=== PATIENT | male | born 1950 | race Caucasian/White ===

== ENCOUNTER 2020-04-21 12:45 | Outpatient (CLI) | payer MEDICARE, OTHER, SELFPAY ==
--- NOTE | ~2020-04-21 | CT_ITS ---
EXAMINATION: CT abdomen pelvis wo con DATE: 04/21/2020 13:30 INDICATION: Suprapubic and generalized abdominal pain for 3 months TECHNIQUE: Computed tomography (CT) of the abdomen and pelvis was performed without intravenous contr ast. Automated exposure control and iterative reconstruction technique were employed. Exam dose: 712 .56 mGy-cm total exam DLP. COMPARISON: 01/10/2018 CT abdomen FINDINGS: The lung bases are clear of infiltrate or consolidation. Normal heart size. No pericardial or pleural effusion. Again noted are multiple cysts scattered throughout the left and right hepatic lobes, not significant ly changed since 01/10/2018. No interval suspicious space-occupying mass lesion of the liver. Normal s plenic size. The gallbladder is present. No gallbladder wall thickening or pericholecystic fluid or fat stranding. No bile duct or pancreatic duct dilatation. No pancreatic mass lesion or calcification is detected. Normal morphology of the adrenal glands. There is scarring and prominent cortical thinning in the upper pole left kidney posteriorly. Stable approximately 2.5 cm cyst of the right kidney. Stable very small exophytic cortical cyst of th e right kidney. No right renal or ureteral or urinary bladder calculus or hydroureteronephrosis. There is mild to mod erate prostate enlargement and calcification. There is atherosclerotic calcification of the abdominal aorta and at the origin of the superior mesen teric and the renal arteries. No abdominal aortic aneurysm. There is calcification of the iliac arter ies. No intraperitoneal or retroperitoneal or pelvic mass lesion or adenopathy or ascites is detected. Very small sliding hiatal hernia. Normal appendix. Diverticulosis of the left colon; no CT evidence of diverticulitis. No bowel obstruc tion, bowel wall thickening, pneumatosis or intraperitoneal free air is detected. Very small fat-containing umbilical hernia. Posterior T11-S1 spine fusion. Interbody spinal fusion at L5-S1 as well. No suspicious osteolytic or osteoblastic lesions are noted. IMPRESSION: Multiple stable hepatic cysts since 01/14/2018 Stable right renal cysts since 01/14/2018 Mild to moderate prostate enlargement and calcification Very small sliding hiatal hernia Diverticulosis of the left colon; no CT evidence of diverticulitis Posterior spinal fusion from T11-S1, interbody spinal fusion at L5-S1 Reviewed, dictated and finalized at [facility] Reviewed, dictated and finalized at [facility] ER
[2020-04-21 13:19] LABS: Estimated Glomerular Filt Rate 28
== END 2020-04-21 12:46 | disposition home or self-care (01) ==
PROVIDERS: PCP Family Medicine Adolescent Medicine; Visit Provider Internal Medicine Gastroenterology
DX: R10.30 Lower abdominal pain, unspecified (principal); K76.89 Other specified diseases of liver; N40.0 Benign prostatic hyperplasia without lower urinary tract symptoms; K44.9 Diaphragmatic hernia without obstruction or gangrene; K57.90 Diverticulosis of intestine, part unspecified, without perforation or abscess without bleeding; Z98.1 Arthrodesis status
CPT/HCPCS: 74176

== ENCOUNTER 2020-05-11 02:09 | Outpatient (CLI) | payer MEDICARE, OTHER, SELFPAY ==
[2020-05-11 18:38] LABS: SARS-CoV-2 RNA PCR Negative
== END 2020-05-11 02:10 | disposition home or self-care (01) ==
LOC: ANHCOVIDDT 02:09
PROVIDERS: PCP Family Medicine Adolescent Medicine; Visit Provider Internal Medicine Gastroenterology
DX: Z01.812 Encounter for preprocedural laboratory examination (principal); Z20.822 Contact with and (suspected) exposure to COVID-19
CPT/HCPCS: C9803; U0003; U0005

== ENCOUNTER 2020-05-14 02:24 | Day surgery (SDC) | payer MEDICARE, OTHER, SELFPAY ==
[2020-05-14 07:23] VITALS: BP 140/104; PULSE 69; RESP 20; TEMP 36.4; O2SAT 99; BMI 29.0
[2020-05-14] MEDS: LACTATED RINGERS 1,000 ML 150 ML IV CONT (07:39)
[2020-05-14 07:48] VITALS: BP 156/73
--- NOTE | 2020-05-14 08:30 | WPDANESEPPF ---
Anes - Initial Pre Proc Eval Procedure: Operation Date: 05/14/20 08:30 Proposed Procedures p Colonoscopy - Brant Camejo MD Date/Time: 05/14/20 08:30 Surgeon: Brant Camejo MD Pre Op Diagnosis: Abn. CT scan, Diverticulosis Patient Data Age: 70 Gender: M Height: 5 ft 7 in Weight: 84 kg Last Vital Signs Temp 97.5 F L 05/14/20 07:23 Pulse 69 05/14/20 07:23 Resp 20 05/14/20 07:23 BP 156/73 H 05/14/20 07:48 Pulse Ox 99 05/14/20 07:23 Allergies Allergy/AdvReac Type Severity Reaction Status Date / Time vancomycin AdvReac Redness of Verified 05/14/20 07:19 Skin Home Medications Medication Instructions Recorded Confirmed Type aspirin 81 mg PO DAILY 05/06/20 05/06/20 History cholecalciferol (vitamin D3) 125 mcg PO DAILY 05/06/20 05/06/20 History diclofenac sodium 75 mg PO BID 05/06/20 05/06/20 History docusate sodium 50 mg PO DAILY 05/06/20 05/06/20 History fenofibrate nanocrystallized 145 mg PO DAILY 05/06/20 05/06/20 History gabapentin 300 mg PO DAILY 05/06/20 05/06/20 History ipratropium bromide 1 spray INTRANASAL DAILY 05/06/20 05/06/20 History lisinopril-hydrochlorothiazide 1 tablet PO DAILY 05/06/20 05/06/20 History iuramvdajctd-ktlfftoo-hvdqzj 1 tablet PO DAILY 05/06/20 05/06/20 History [Multivitamin 50 Plus] dd-aq-pzeC-udqXv-Gzl-Sxl-hc124 1 tablet PO DAILY 05/06/20 05/06/20 History [Airborne (ascorbate sodium)] oxycodone 10 mg PO DAILY PRN 05/06/20 05/06/20 History pantoprazole 40 mg PO BID 05/06/20 05/06/20 History simvastatin 40 mg PO DAILY 05/06/20 05/06/20 History baclofen 10 mg DAILY PRN 05/14/20 05/14/20 History Patient hx anesthesia problems: none Family hx anesthesia problems: none PMFSH Past Medical History Medical History (Updated 01/22/21 @ 08:30 by Valdemar Hallman MD) GERD (gastroesophageal reflux disease) Hyperlipidemia Hypertension TIA (transient ischemic attack) Social History Social History Smoking packs per day: 2 Smoking cigarettes per day: 40.0 Years smoked: 20 Smoking pack-years: 40.00 Smoking status: Former smoker Tobacco type: cigarettes Alcohol intake: current Drinks per week: 7 Living arrangements: with family Gender identity (if verbalized by the patient): Male Spiritual care concerns: No Anes - Eval Final PreProcedure Day of Procedure 05/14/20 08:30 Patient weight: overweight Heart: regular rate and rhythm Lungs: clear to auscultation Airway: Mallampati scale class II Neurological: alert and oriented Last oral intake: >/= 8 hours ASA classification: III Emergent: no Anesthetic plan: proceed Anesthesia type and monitoring: general GIVS and standard monitoring Informed Consent: The patient's anesthetic plan and its attendant risks and benefits were discussed with the patient/family/POA. Questions were solicited and answers provided to the satisfaction of the patient/family/POA.
--- NOTE | 2020-05-14 08:37 | WPDGICN ---
Assessment and Plan Assessment and plan (1) Abdominal pain: Code(s): R10.9 - Unspecified abdominal pain Status: Acute Assessment and Plan: Patient has rather diffuse poorly localized abdominal pain. Etiology remains unclear. Diverticulosis evident on CT scan but no obvious diverticulitis. Plan is for colonoscopy to assess pain more thoroughly. High-fiber diet is advised. Because of prior history of GE reflux continuing pantoprazole peers prudent. Further recommendations will be given after endoscopy. (2) Diverticulosis: Code(s): K57.90 - Diverticulosis of intestine, part unspecified, without perforation or abscess without bleeding Status: Acute Assessment and Plan: Diverticular disease evident on CT scan. But no obvious explanation for pain. Five fiber diet advised at this time. Further recommendations may be given after endoscopy. GI Consult Note Consult date/time: 05/14/20 08:37 HPI: Valdemar Clark is a 70 year old male Seen in evaluation at the request of Dr. Stephenson. patient presents for evaluation of abdominal pain. Patient reports four-month history of rather diffuse abdominal discomfort. Perhaps a little bit more noticeable on the left abdomen compared to the right. No specific aggravating or alleviating factors. His bowel habits are normal. He may notice it somewhat more often after eating. States symptoms will occur intermittently perhaps every 3 days. When symptoms occur at last for approximately 1 1-1/2hours. Recent CT scan revealed diverticulosis. No evidence of inflammation where described. Patient has continued proton pump inhibitor such as pantoprazole with no change in symptoms. He has a prior history of acid reflux. Patient presents today for colonoscopy to evaluate more thoroughly. Family history is noncontributory. Review of Systems Review of Systems: All systems reviewed & are unremarkable except as noted in HPI and below PMFSH Past Medical History Medical History (Updated 05/14/20 @ 08:40 by Brant Camejo MD) GERD (gastroesophageal reflux disease) Hyperlipidemia Hypertension TIA (transient ischemic attack) Social History Social History Smoking packs per day: 2 Smoking cigarettes per day: 40.0 Years smoked: 20 Smoking pack-years: 40.00 Smoking status: Former smoker Tobacco type: cigarettes Alcohol intake: current Drinks per week: 7 Living arrangements: with family Gender identity (if verbalized by the patient): Male Spiritual care concerns: No Meds Home Medications and Allergies Home Medications Medication Instructions Recorded Confirmed Type aspirin 81 mg PO DAILY 05/06/20 05/06/20 History cholecalciferol (vitamin D3) 125 mcg PO DAILY 05/06/20 05/06/20 History diclofenac sodium 75 mg PO BID 05/06/20 05/06/20 History docusate sodium 50 mg PO DAILY 05/06/20 05/06/20 History fenofibrate nanocrystallized 145 mg PO DAILY 05/06/20 05/06/20 History gabapentin 300 mg PO DAILY 05/06/20 05/06/20 History ipratropium bromide 1 spray INTRANASAL DAILY 05/06/20 05/06/20 History lisinopril-hydrochlorothiazide 1 tablet PO DAILY 05/06/20 05/06/20 History slitxpcrqcbk-inrojcri-svaiqh 1 tablet PO DAILY 05/06/20 05/06/20 History [Multivitamin 50 Plus] ms-pj-pmgK-nukMa-Wdj-Zkj-hc124 1 tablet PO DAILY 05/06/20 05/06/20 History [Airborne (ascorbate sodium)] oxycodone 10 mg PO DAILY PRN 05/06/20 05/06/20 History pantoprazole 40 mg PO BID 05/06/20 05/06/20 History simvastatin 40 mg PO DAILY 05/06/20 05/06/20 History baclofen 10 mg DAILY PRN 05/14/20 05/14/20 History Allergies Allergy/AdvReac Type Severity Reaction Status Date / Time vancomycin AdvReac Redness of Verified 05/14/20 07:19 Skin Vital Signs Vital Signs - 24 hr 05/14/20 07:23 05/14/20 07:48 Temperature 97.5 F L Pulse Rate 69 Respiratory Rate 20 Blood Pressure 140/104 H 156/73 H Pulse Oximetry 99 Exam Narrative: Exam Narrative:
[2020-05-14 08:58] VITALS: BP 103/71; PULSE 75; RESP 20; O2SAT 98
[2020-05-14 09:08] VITALS: BP 108/70; PULSE 67; RESP 20; O2SAT 99
[2020-05-14 09:18] VITALS: BP 117/78; PULSE 61; RESP 20; O2SAT 99
== END 2020-05-14 09:31 | disposition home or self-care (01) ==
PROVIDERS: PCP Family Medicine Adolescent Medicine; Visit Provider Internal Medicine Gastroenterology
PROC: 0DJD8ZZ Inspection of Lower Intestinal Tract, Via Natural or Artificial Opening Endoscopic (ICD-10-PCS; CPT 45378; principal; 2020-05-14 08:30)
DX: Z12.11 Encounter for screening for malignant neoplasm of colon (principal); R10.84 Generalized abdominal pain; K64.8 Other hemorrhoids; K57.30 Diverticulosis of large intestine without perforation or abscess without bleeding; K21.9 Gastro-esophageal reflux disease without esophagitis; I10 Essential (primary) hypertension; E78.5 Hyperlipidemia, unspecified; Z86.73 Personal history of transient ischemic attack (TIA), and cerebral infarction without residual deficits; Z87.891 Personal history of nicotine dependence; Z79.82 Long term (current) use of aspirin
CPT/HCPCS: G0121; J2704; J7120

== ENCOUNTER 2020-05-25 00:07 | Outpatient (CLI) | payer MEDICARE, OTHER, SELFPAY ==
[2020-05-25 19:18] LABS: SARS-CoV-2 RNA PCR Negative
== END 2020-05-25 00:08 | disposition home or self-care (01) ==
LOC: ANHCOVIDDT 00:21
PROVIDERS: PCP Family Medicine Adolescent Medicine; Visit Provider Internal Medicine Gastroenterology
DX: Z01.812 Encounter for preprocedural laboratory examination (principal); Z20.822 Contact with and (suspected) exposure to COVID-19
CPT/HCPCS: C9803; U0003; U0005

== ENCOUNTER 2020-05-28 01:31 | Day surgery (SDC) | payer MEDICARE, OTHER, SELFPAY ==
[2020-05-18 14:12] VITALS: BMI 30.8
[2020-05-28] MEDS: LACTATED RINGERS 1,000 ML 150 ML IV CONT (08:57)
[2020-05-28 08:59] VITALS: BP 162/84; PULSE 78; RESP 18; TEMP 36.2; O2SAT 100; BMI 33.0
--- NOTE | 2020-05-28 09:07 | WPDGICN ---
Assessment and Plan Assessment and plan (1) Abdominal pain: Code(s): R10.9 - Unspecified abdominal pain Status: Acute Assessment and Plan: Patient is abdominal pain currently appears to be more in the left upper quadrant. Typically after eating and improved somewhat with Tums. Plan is for EGD to assess more thoroughly today. If this fails to identify source of discomfort small-bowel follow-through may be of additional in for importance. Further recommendations will be given after endoscopy. (2) Diverticulosis: Code(s): K57.90 - Diverticulosis of intestine, part unspecified, without perforation or abscess without bleeding Status: Acute Assessment and Plan: Diverticular disease appears to be asymptomatic. High-fiber diet advised. GI Consult Note Consult date/time: 05/28/20 09:07 HPI: Valdemar Clark is a 70 year old male Seen in evaluation at the request of Dr. Landa. Patient recently underwent unremarkable colonoscopy. Patient continues to complain of pain. He typically will have left upper quadrant abdominal pain after eating. He describes becoming bloated. There is no specific dietary intake that triggers this pain. When pain comes on it will last for about 1hour. He states this occurs more typically after the evening meal. States his symptoms improve on taking Tums. Patient does describe his abdomen becoming tense and tight during this interval. As stated recent colonoscopy was unremarkable aside from diverticular disease. Family history is noncontributory. Patient denies any weight loss or bleeding. In addition to Tums he is on pantoprazole 40 mg p.o. b.i.d.. Patient presents today for EGD evaluation. Review of Systems Review of Systems: All systems reviewed & are unremarkable except as noted in HPI and below [facility] Past Medical History Medical History (Updated 05/14/20 @ 08:40 by Brant Camejo MD) GERD (gastroesophageal reflux disease) Hyperlipidemia Hypertension TIA (transient ischemic attack) Social History Social History Smoking packs per day: 2 Smoking cigarettes per day: 40.0 Years smoked: 20 Smoking pack-years: 40.00 Smoking status: Former smoker Tobacco type: cigarettes Alcohol intake: current Drinks per week: 7 Substance use: former Substance use type: does not use Living arrangements: with family Gender identity (if verbalized by the patient): Male Spiritual care concerns: No Meds Home Medications and Allergies Home Medications Medication Instructions Recorded Confirmed Type aspirin 81 mg PO DAILY 05/06/20 05/18/20 History cholecalciferol (vitamin D3) 125 mcg PO DAILY 05/06/20 05/18/20 History diclofenac sodium 75 mg PO BID 05/06/20 05/18/20 History docusate sodium 50 mg PO DAILY 05/06/20 05/18/20 History fenofibrate nanocrystallized 145 mg PO DAILY 05/06/20 05/18/20 History gabapentin 300 mg PO DAILY 05/06/20 05/18/20 History ipratropium bromide 1 spray INTRANASAL DAILY 05/06/20 05/18/20 History lisinopril-hydrochlorothiazide 1 tablet PO DAILY 05/06/20 05/18/20 History foecpqbkhdrg-getzmpws-zmilvk 1 tablet PO DAILY 05/06/20 05/18/20 History [Multivitamin 50 Plus] al-ld-cipU-befIg-Ven-Suh-hc124 1 tablet PO DAILY 05/06/20 05/18/20 History [Airborne (ascorbate sodium)] pantoprazole 40 mg PO BID 05/06/20 05/18/20 History simvastatin 40 mg PO DAILY 05/06/20 05/18/20 History baclofen 10 mg DAILY PRN 05/14/20 05/18/20 History Allergies Allergy/AdvReac Type Severity Reaction Status Date / Time vancomycin AdvReac Redness of Verified 05/18/20 14:10 Skin Vital Signs Vital Signs - 24 hr 05/28/20 08:59 Temperature 97.1 F L Pulse Rate 78 Respiratory Rate 18 Blood Pressure 162/84 H Pulse Oximetry 100 Exam Narrative: Exam Narrative: Physical exam reveals patient to be alert. Vital signs stable. HEENT exam is unremarkable. Lungs are clear to auscultation and percussion. Heart is with
--- NOTE | 2020-05-28 09:25 | WPDANESEPPF ---
Anes - Initial Pre Proc Eval Procedure: Operation Date: 05/28/20 10:00 Proposed Procedures p Esophagogastroduodenoscopy - Brant Camejo MD Date/Time: 05/28/20 09:25 Surgeon: Brant Camejo MD Pre Op Diagnosis: Right Upper Quadrant Pain Patient Data Age: 70 Gender: M Height: 5 ft 5 in Weight: 90.1 kg Last Vital Signs Temp 97.1 F L 05/28/20 08:59 Pulse 78 05/28/20 08:59 Resp 18 05/28/20 08:59 BP 162/84 H 05/28/20 08:59 Pulse Ox 100 05/28/20 08:59 Allergies Allergy/AdvReac Type Severity Reaction Status Date / Time vancomycin AdvReac Redness of Verified 05/18/20 14:10 Skin Home Medications Medication Instructions Recorded Confirmed Type aspirin 81 mg PO DAILY 05/06/20 05/18/20 History cholecalciferol (vitamin D3) 125 mcg PO DAILY 05/06/20 05/18/20 History diclofenac sodium 75 mg PO BID 05/06/20 05/18/20 History docusate sodium 50 mg PO DAILY 05/06/20 05/18/20 History fenofibrate nanocrystallized 145 mg PO DAILY 05/06/20 05/18/20 History gabapentin 300 mg PO DAILY 05/06/20 05/18/20 History ipratropium bromide 1 spray INTRANASAL DAILY 05/06/20 05/18/20 History lisinopril-hydrochlorothiazide 1 tablet PO DAILY 05/06/20 05/18/20 History hswqdsosdsqu-bmfrdvum-oxutkg 1 tablet PO DAILY 05/06/20 05/18/20 History [Multivitamin 50 Plus] ym-fe-tolY-mrkUq-Dgq-Tby-hc124 1 tablet PO DAILY 05/06/20 05/18/20 History [Airborne (ascorbate sodium)] pantoprazole 40 mg PO BID 05/06/20 05/18/20 History simvastatin 40 mg PO DAILY 05/06/20 05/18/20 History baclofen 10 mg DAILY PRN 05/14/20 05/18/20 History Patient hx anesthesia problems: none Family hx anesthesia problems: none PMFSH Past Medical History Medical History (Updated 05/14/20 @ 08:40 by Brant Camejo MD) GERD (gastroesophageal reflux disease) Hyperlipidemia Hypertension TIA (transient ischemic attack) Social History Social History Smoking packs per day: 2 Smoking cigarettes per day: 40.0 Years smoked: 20 Smoking pack-years: 40.00 Smoking status: Former smoker Tobacco type: cigarettes Alcohol intake: current Drinks per week: 7 Substance use: former Substance use type: does not use Living arrangements: with family Gender identity (if verbalized by the patient): Male Spiritual care concerns: No Anes - Eval Final PreProcedure Day of Procedure 05/28/20 09:25 Patient weight: overweight Heart: regular rate and rhythm Lungs: clear to auscultation Airway: Mallampati scale class II Neurological: alert and oriented Last oral intake: >/= 8 hours ASA classification: III Emergent: no Anesthetic plan: proceed Anesthesia type and monitoring: general GIVS and standard monitoring Informed Consent: The patient's anesthetic plan and its attendant risks and benefits were discussed with the patient/family/POA. Questions were solicited and answers provided to the satisfaction of the patient/family/POA.
[2020-05-28] MEDS: SIMETHICONE ORAL SUSPENSION 20 MG/0.3 ML 30 ML BOTTLE 0.6 ML IRRIGATION (09:39)
[2020-05-28 09:50] VITALS: BP 110/67; PULSE 65; RESP 18; O2SAT 98
[2020-05-28 10:00] VITALS: BP 117/79; PULSE 64; RESP 20; O2SAT 100
[2020-05-28 10:10] VITALS: BP 118/69; PULSE 61; RESP 21; O2SAT 100
== END 2020-05-28 10:33 | disposition home or self-care (01) ==
PROVIDERS: PCP Family Medicine Adolescent Medicine; Visit Provider Internal Medicine Gastroenterology
PROC: 0DJ08ZZ Inspection of Upper Intestinal Tract, Via Natural or Artificial Opening Endoscopic (ICD-10-PCS; CPT 43235; principal; 2020-05-28 10:00)
DX: C7A.010 Malignant carcinoid tumor of the duodenum (principal); D13.2 Benign neoplasm of duodenum; K31.7 Polyp of stomach and duodenum; K29.50 Unspecified chronic gastritis without bleeding; K25.3 Acute gastric ulcer without hemorrhage or perforation; R10.12 Left upper quadrant pain; K21.9 Gastro-esophageal reflux disease without esophagitis; E78.5 Hyperlipidemia, unspecified; I10 Essential (primary) hypertension; Z86.73 Personal history of transient ischemic attack (TIA), and cerebral infarction without residual deficits; Z87.891 Personal history of nicotine dependence; Z79.82 Long term (current) use of aspirin
CPT/HCPCS: 43239; 43251; 88305; 88342; J2704; J7120

== ENCOUNTER → 2020-08-07 02:58 | Outpatient (CLI) | payer MEDICARE, OTHER, SELFPAY ==
[2020-08-07 19:43] LABS: SARS-CoV-2 RNA PCR Negative
== END ==
PROVIDERS: Visit Provider Internal Medicine Gastroenterology
DX: Z01.812 Encounter for preprocedural laboratory examination (principal); Z20.822 Contact with and (suspected) exposure to COVID-19
CPT/HCPCS: C9803; U0003; U0005

== ENCOUNTER 2020-08-10 00:57 | Day surgery (SDC) | payer MEDICARE, OTHER, SELFPAY ==
[2020-07-29 14:33] VITALS: BMI 30.4
[2020-08-10 08:19] VITALS: BP 125/72; PULSE 79; RESP 20; TEMP 36.2; O2SAT 99
[2020-08-10] MEDS: LACTATED RINGERS 1,000 ML 150 ML IV CONT (08:33)
--- NOTE | 2020-08-10 08:49 | WPDANESEPPF ---
Anes - Initial Pre Proc Eval Procedure: Operation Date: 08/10/20 10:00 Proposed Procedures p Esophagogastroduodenoscopy - Aniceto Arndt MD Date/Time: 08/10/20 08:49 Surgeon: Aniceto Arndt MD Pre Op Diagnosis: Gastric Ulcer Patient Data Age: 70 Gender: M Height: 5 ft 7 in Weight: 88.9 kg Last Vital Signs Temp 97.2 F L 08/10/20 08:19 Pulse 79 08/10/20 08:19 Resp 20 08/10/20 08:19 BP 125/72 08/10/20 08:19 Pulse Ox 99 08/10/20 08:19 Allergies Allergy/AdvReac Type Severity Reaction Status Date / Time alprazolam [From Xanax] Allergy Loss of Verified 08/10/20 08:18 Consciousness vancomycin AdvReac Redness of Verified 08/10/20 08:18 Skin Home Medications Medication Instructions Recorded Confirmed Type cholecalciferol (vitamin D3) 125 mcg PO DAILY 05/06/20 08/10/20 History docusate sodium 50 mg PO DAILY 05/06/20 08/10/20 History fenofibrate nanocrystallized 145 mg PO DAILY 05/06/20 08/10/20 History gabapentin 300 mg PO QID 05/06/20 08/10/20 History ipratropium bromide 1 spray INTRANASAL DAILY 05/06/20 08/10/20 History lisinopril-hydrochlorothiazide 1 tablet PO DAILY 05/06/20 08/10/20 History bxvfrckdilcd-cwnyfkyh-rlcqfq 1 tablet PO DAILY 05/06/20 08/10/20 History [Multivitamin 50 Plus] bg-pn-mzmO-kimYj-Uyq-Gui-hc124 1 tablet PO DAILY 05/06/20 08/10/20 History [Airborne (ascorbate sodium)] pantoprazole 40 mg PO BID 05/06/20 08/10/20 History simvastatin 40 mg PO DAILY 05/06/20 08/10/20 History baclofen 10 mg PO DAILY PRN 05/14/20 08/10/20 History amoxicillin 500 mg PO Q12H 08/10/20 08/10/20 History Patient hx anesthesia problems: none Family hx anesthesia problems: none PMFSH Past Medical History Medical History GERD (gastroesophageal reflux disease) Hyperlipidemia Hypertension TIA (transient ischemic attack) Social History Social History (System 06/04/20 @ 11:58 by Giselle Torre) Smoking packs per day: 2 Smoking cigarettes per day: 40.0 Years smoked: 20 Smoking pack-years: 40.00 Smoking status: Former smoker Tobacco type: cigarettes Alcohol intake: current Drinks per week: 3 Alcohol use details: WHISKJANET Substance use: never Substance use type: does not use Living arrangements: with family Gender identity (if verbalized by the patient): Male Spiritual care concerns: No Anes - Eval Final PreProcedure Day of Procedure 08/10/20 08:49 Patient weight: overweight Heart: regular rate and rhythm Lungs: clear to auscultation Airway: Mallampati scale class II Neurological: alert and oriented Last oral intake: >/= 8 hours ASA classification: III Emergent: no Anesthetic plan: proceed Anesthesia type and monitoring: general GIVS and standard monitoring Informed Consent: The patient's anesthetic plan and its attendant risks and benefits were discussed with the patient/family/POA. Questions were solicited and answers provided to the satisfaction of the patient/family/POA.
--- NOTE | 2020-08-10 09:41 | PM.HPGS ---
History of Present Illness History of Present Illness Consent: Risks, benefits, and alternatives have been discussed and questions answered. Patient agrees to proceed with procedure. Chief complaint: Gastric Ulcer Narrative: Valdemar Clark is a 70 year old male 2 months ago had gastric ulcer, he discontinued meloxicam and now using ppi Review of Systems Constitutional: Constitutional: Denies headache(s) and Denies weakness Eyes: Eyes: Denies blurry vision ENT: Reports Normal hearing present, Denies headache(s) and Denies neck pain Cardiovascular: Cardiovascular: Denies chest pain and Denies dyspnea Respiratory: Respiratory: Denies dyspnea Gastrointestinal: Gastrointestinal: Reports no additional gastrointestinal complaints Genitourinary: Genitourinary: Denies dysuria Musculoskeletal: Musculoskeletal: Denies neck pain Integumentary/Breasts: Skin/Breast: Denies dry skin Neurologic: Reports Normal hearing present, Denies headache(s) and Denies weakness Psychiatric: Psychiatric: Denies anxiety Endocrine: Endocrine: Denies change in body appearance Hematologic/Lymphatic: Hematologic/Lymphatic: Denies easy bleeding Allergic/Immunologic: Allergic/Immunologic: Denies urticaria PMFSH Past Medical History Medical History GERD (gastroesophageal reflux disease) Hyperlipidemia Hypertension TIA (transient ischemic attack) Social History Social History (System 06/04/20 @ 11:58 by Giselle Torre) Smoking packs per day: 2 Smoking cigarettes per day: 40.0 Years smoked: 20 Smoking pack-years: 40.00 Smoking status: Former smoker Tobacco type: cigarettes Alcohol intake: current Drinks per week: 3 Alcohol use details: RAHATEY Substance use: never Substance use type: does not use Living arrangements: with family Gender identity (if verbalized by the patient): Male Spiritual care concerns: No Meds Home Medications and Allergies Home Medications Medication Instructions Recorded Confirmed Type cholecalciferol (vitamin D3) 125 mcg PO DAILY 05/06/20 08/10/20 History docusate sodium 50 mg PO DAILY 05/06/20 08/10/20 History fenofibrate nanocrystallized 145 mg PO DAILY 05/06/20 08/10/20 History gabapentin 300 mg PO QID 05/06/20 08/10/20 History ipratropium bromide 1 spray INTRANASAL DAILY 05/06/20 08/10/20 History lisinopril-hydrochlorothiazide 1 tablet PO DAILY 05/06/20 08/10/20 History hwcwcqaseujy-ilmynuiw-haxjzz 1 tablet PO DAILY 05/06/20 08/10/20 History [Multivitamin 50 Plus] el-fv-hkaV-dxkQy-Ycg-Yzp-hc124 1 tablet PO DAILY 05/06/20 08/10/20 History [Airborne (ascorbate sodium)] pantoprazole 40 mg PO BID 05/06/20 08/10/20 History simvastatin 40 mg PO DAILY 05/06/20 08/10/20 History baclofen 10 mg PO DAILY PRN 05/14/20 08/10/20 History amoxicillin 500 mg PO Q12H 08/10/20 08/10/20 History Allergies Allergy/AdvReac Type Severity Reaction Status Date / Time alprazolam [From Xanax] Allergy Loss of Verified 08/10/20 08:18 Consciousness vancomycin AdvReac Redness of Verified 08/10/20 08:18 Skin Vital Signs Vital Signs - 24 hr 08/10/20 08:19 Temperature 97.2 F L Pulse Rate 79 Respiratory Rate 20 Blood Pressure 125/72 Pulse Oximetry 99 Exam Const: General: comfortable and no acute distress HENMT: General nose exam: Normal nares present Eyes: General: appearance normal, both eyes and all related structures Neck: Neck: no JVD Resp: Auscultation: clear to auscultation bilaterally Cardio: Rate: regular rate Rhythm: regular rhythm GI: Inspection: non-distended GI Palp: Yes Soft to palpation Skin: General skin exam: normal color Neuro: General: gait normal Speech: normal speech Extrem: General: normal to inspection Psych: Mental Status: mental status grossly normal Assessment and Plan Assessment and plan (1) Gastric ulcer: Code(s): K25.9 - Gastric ulcer, unspec
[2020-08-10 09:52] VITALS: BP 102/64; PULSE 63; RESP 19; O2SAT 97
[2020-08-10 10:02] VITALS: BP 99/58; PULSE 61; RESP 18; O2SAT 98
[2020-08-10 10:12] VITALS: BP 112/73; PULSE 56; RESP 18; O2SAT 98
== END 2020-08-10 10:40 | disposition home or self-care (01) ==
PROVIDERS: PCP Family Medicine Adolescent Medicine; Visit Provider Internal Medicine Gastroenterology
PROC: 0DJ08ZZ Inspection of Upper Intestinal Tract, Via Natural or Artificial Opening Endoscopic (ICD-10-PCS; CPT 43235; principal; 2020-08-10 10:00)
DX: K25.9 Gastric ulcer, unspecified as acute or chronic, without hemorrhage or perforation (principal); K31.7 Polyp of stomach and duodenum; K29.50 Unspecified chronic gastritis without bleeding; K21.9 Gastro-esophageal reflux disease without esophagitis; I10 Essential (primary) hypertension; E87.5 Hyperkalemia; E78.5 Hyperlipidemia, unspecified; Z86.73 Personal history of transient ischemic attack (TIA), and cerebral infarction without residual deficits; Z87.891 Personal history of nicotine dependence
CPT/HCPCS: 43239; 88305; J2704; J7120

== ENCOUNTER 2022-01-11 10:28 | Outpatient (CLI) | payer MEDICARE, OTHER, SELFPAY ==
[2022-01-11 10:53] LABS: Basophils Percent Auto 0.8 % (0.2-1.2); Eosinophils Absolute Auto 0.2 K/mm3 (0-0.3); Hematocrit 53.5 % (42.0-52.0); Hemoglobin 16.7 g/dL (14.0-18.0); Immature Granulocyte Absolute 0.01 K/mm3 (0.00-0.031); Immature Granulocyte Percent A 0.3 % (0-0.5); Lymphocytes Absolute Auto 0.58 K/mm3 (0.9-3.2); Lymphocytes Percent Auto 14.5 % (18.3-44.2); Mean Corpuscular HGB Conc 31.2 g/dl (32-36); Mean Corpuscular Hemoglobin 25.9 pg (26-34); Mean Corpuscular Volume 83.1 fl (80-100); Mean Platelet Volume 9.6 fl (7.4-10.4); Monocytes Absolute Auto 0.3 K/mm3 (0.1-0.6); Monocytes Percent Auto 7.3 % (2.6-8.5); Neutrophils Absolute Auto 2.9 K/mm3 (1.3-6.7); Neutrophils Percent Auto 72.1 % (45.5-73.1); Platelet Count Result 169 k/mm3 (150-375); Red Blood Count 6.44 M/mm3 (4.6-6.20); Red Cell Distribution Width 21.3 % (11.5-14.5)
[2022-01-11 11:53] LABS: Iron 30 ug/dL (49-181)
[2022-01-11 12:03] LABS: Percent Iron Saturation 8 % (20-50)
[2022-01-11 12:09] LABS: Alanine Aminotransferase 37 U/L (6-50); Albumin Level 4.7 g/dL (3.5-5.1); Alkaline Phosphatase 74 U/L (38-126); Anion Gap 10 mmol/L (8-16); Aspartate Amino Transferase 36 U/L (17-59); Bilirubin,Total 0.4 mg/dL (0.2-1.3); Blood Urea Nitrogen 21 mg/dL (9-20); Calcium 11.5 mg/dL (8.4-10.2); Carbon Dioxide 24 mmol/L (22-30); Chloride 109 mmol/L (98-107); Estimated Glomerular Filt Rate > 60; Glucose 136 mg/dL (65-110); Potassium 3.7 mmol/L (3.4-5.0); Sodium 143 mmol/L (137-145)
[2022-01-11 12:31] LABS: Thyroid Stimulating Hormone 0.845 uIU/mL (0.465-4.680)
[2022-01-11 13:06] LABS: Folic Acid 11.2 ng/mL (2.76->20)
[2022-01-11 13:10] LABS: Vitamin D 25 Hydroxy 72.3 ng/mL
[2022-01-11 14:06] LABS: Parathyroid Intact 210.1 pg/mL (7.5-53.5)
== END 2022-01-11 10:29 | disposition home or self-care (01) ==
LOC: ANHLAB 10:30
PROVIDERS: PCP Family Medicine Adolescent Medicine; Visit Provider Internal Medicine Hematology & Oncology
DX: D50.9 Iron deficiency anemia, unspecified (principal); E55.9 Vitamin D deficiency, unspecified; I10 Essential (primary) hypertension
CPT/HCPCS: 36415; 80053; 82306; 82607; 82728; 82746; 83540; 83550; 83970; 84443; 85025

== ENCOUNTER → 2022-02-22 10:33 | Outpatient (CLI) | payer MEDICARE, OTHER, SELFPAY ==
--- NOTE | ~2022-02-22 | US_ITS ---
EXAMINATION: US thyroid DATE: 02/22/2022 11:02 INDICATION: Abnormal thyroid hormone levels TECHNIQUE: Multiple ultrasound images of the thyroid were obtained. COMPARISON: Postcontrast cervical spine CT dated 12/23/2015 FINDINGS: The right thyroid lobe measures 5.5 x 2.2 x 2.2 cm. The left thyroid lobe measures 5.7 x 2.0 x 1.6 c m. 3 mm hypoechoic nodule in the mid right thyroid, too small to determine whether solid or cystic. No other thyroid nodules identified. There is normal echotexture, echogenicity and vascular flow thro ughout the thyroid gland. IMPRESSION: 1. Single 3 mm nodule in the right lobe of the otherwise normal thyroid which is too small to further characterize, but which regardless of imaging features remains below size threshold for recommendati on of either follow-up or biopsy. Reviewed, dictated and finalized at location B. IMPRESSION: 1. Single 3 mm nodule in the right lobe of the otherwise normal thyroid which i s too small to further characterize, but which regardless of imaging features r emains below size threshold for recommendation of either follow-up or biopsy.
== END ==
PROVIDERS: PCP Family Medicine Adolescent Medicine; Visit Provider Internal Medicine Endocrinology, Diabetes & Metabolism
DX: E04.9 Nontoxic goiter, unspecified (principal)
CPT/HCPCS: 76536

== ENCOUNTER 2022-02-24 09:56 | Outpatient (CLI) | payer MEDICARE, OTHER, SELFPAY | END 2022-02-24 09:57 | disposition home or self-care (01) | LOC: ANHAUDASC 09:59 | PROVIDERS: PCP Family Medicine Adolescent Medicine; Visit Provider Family Medicine Adolescent Medicine | DX: H90.3 Sensorineural hearing loss, bilateral (principal) | CPT/HCPCS: 92557; 92567 ==

== ENCOUNTER → 2022-03-01 09:05 | Outpatient (CLI) | payer MEDICARE, OTHER, SELFPAY ==
--- NOTE | ~2022-03-01 | DEXA_ITS ---
Bone Density Report Name: YASMIN MALIN Age: 71 Sex: Male Ethnicity: White Date of : 1950 Indication: hyperparathyroidism; Referring Provider: Salo, Brittney Patterson Study: Bone densitometry was performed. Exam Date: March 01, 2022 Accession number: [id number] Bone Density: Region BMD T-score Z-score Classification Total Forearm (Left) 0.654 -0.5 0.7 1/3 Forearm (Left) 0.792 -0.6 0.7 UD Forearm (Left) 0.489 -0.4 0.7 World Health Organization criteria for BMD impression classify patients as: Normal (T-score at or above -1.0), Osteopenia (T-score between -1.0 and -2.5), or Osteoporosis (T-score at or below -2.5). Clinical Information Provided by Patient: Smokes Has used the following medications: Vitamin D, MTV Has the following medical conditions: Hyperparathyroidism, 1 fractured Lumbar vert during hardware replacement Patient maximum height was 68 No regular weight bearing exercise Does not regularly consume dairy products Drinks caffeinated beverages Impression: The patient has normal bone mass. The patient has risk factors, including: smoking. Discussion: BONE DENSITY IS ABOVE THE MINIMUM DESIRABLE LEVEL AT ALL SKELETAL SITES TESTED. This patient?s bone mineral density is above the minimum desirable level (T-score -1.0 or better) at all sites measured. The patient should follow a healthful lifestyle (good nutrition with adequate calcium and vitamin D, and appropriate weight-bearing exercise). Follow-Up: Consider repeating this study in 5 years or sooner if there is some new clinical indication. Reported by: JANEE on 03/01/2022 10:38:00 AM. Reviewed, dictated and finalized at location AWilliam [facility]
== END ==
PROVIDERS: PCP Family Medicine Adolescent Medicine; Visit Provider Internal Medicine Endocrinology, Diabetes & Metabolism
DX: E21.3 Hyperparathyroidism, unspecified (principal); M81.0 Age-related osteoporosis without current pathological fracture
CPT/HCPCS: 77081

== ENCOUNTER → 2022-03-07 14:56 | Outpatient (CLI) | payer MEDICARE, OTHER, SELFPAY ==
--- NOTE | ~2022-03-07 | DEXA_ITS ---
Bone Density Report Name: YASMIN MALIN Age: 71 Sex: Male Ethnicity: White Date of : 1950 Indication: hyperparathyroidism; Referring Provider: Salo, Brittney Patterson Study: Bone densitometry was performed. Exam Date: March 07, 2022 Accession number: [id number] Bone Density: Region BMD T-score Z-score Classification Femoral Neck (Left) 0.751 -1.3 -0.1 Osteopenia Total Hip (Left) 1.042 0.1 0.7 Normal Femoral Neck (Right) 0.818 -0.8 0.4 Normal Total Hip (Right) 1.127 0.6 1.3 Normal Total Hip Mean 1.085 0.4 1.0 Normal World Health Organization criteria for BMD impression classify patients as: Normal (T-score at or above -1.0), Osteopenia (T-score between -1.0 and -2.5), or Osteoporosis (T-score at or below -2.5). 10-year Fracture Risk(1): Major Osteoporotic Fracture 5.8% Hip Fracture 1.7% Reported Risk Factors: [place] (), Neck BMD=0.751, BMI=29.6, smoking (1) FRAX(R) Version 3.08. Fracture probability calculated for an untreated patient. Fracture probability may be lower if the patient has received treatment. Clinical Information Provided by Patient: Smokes Has used the following medications: Vitamin D, MTV Has the following medical conditions: Hyperparathyroidism, 1 fractured Lumbar vert during hardware replacement Patient maximum height was 68.0 No regular weight bearing exercise Does not regularly consume dairy products Drinks caffeinated beverages Impression: The patient has low bone mass, based on the Left Femoral Neck T-score. The patient has an estimated ten-year risk of hip fracture of 1.7% and an estimated ten-year risk of major fracture of 5.8%, based on the WHO FRAX algorithm. The patient has risk factors, including: smoking. Discussion: BONE DENSITY IS LOW AT ONE OR MORE SKELETAL SITES. This patient's lowest T-score is low at one or more skeletal sites. It meets the World Health Organization's (WHO) criteria for ?low bone mass? (T-score between -1.0 and -2.5). The patient's 10-year risk of fracture as calculated by FRAX is less than the threshold where pharmacological therapy is recommended by the National Osteoporosis Foundation (NOF). However, all treatment decisions require clinical judgment and consideration of individual patient factors, including patient preferences, comorbidities, previous drug use, risk factors not captured in the FRAX model (e.g., frailty, falls, vitamin D deficiency, increased bone turnover, interval significant decline in bone density) and possible under or overestimation of fracture risk by FRAX. The patient should follow a healthful lifestyle (good nutrition with adequate calcium and vitamin D, and appropriate weight-bearing exercise). Follow-Up: Consider repeating this study in 2 to 3 years to reassess this patient's status, or sooner if there is some new
== END ==
PROVIDERS: PCP Family Medicine Adolescent Medicine; Visit Provider Internal Medicine Endocrinology, Diabetes & Metabolism
DX: M81.0 Age-related osteoporosis without current pathological fracture (principal); E21.3 Hyperparathyroidism, unspecified; M85.852 Other specified disorders of bone density and structure, left thigh
CPT/HCPCS: 77080

== ENCOUNTER → 2022-09-12 08:41 | Outpatient (CLI) | payer MEDICARE, OTHER, SELFPAY ==
--- NOTE | ~2022-09-12 | MR_ITS ---
EXAMINATION: MR knee RT wo con DATE: 09/12/2022 09:24 INDICATION: Right knee pain TECHNIQUE: Magnetic resonance imaging (MRI) of the right knee was performed without intravenous contr ast. Sequences included coronal PD-weighted FSE, coronal PD-weighted FS FSE, sagittal T2-weighted FS E, sagittal PD-weighted FS FSE and axial PD weighted fat saturated FSE. COMPARISON: None. FINDINGS: Medial compartment: Complex tear of the posterior body and posterior horn of the medial meniscus which extends longitudin ally to the inferior articular surface at the posterior body and medial side of the posterior horn cr ossing the free edge and cutting the cephalad surface in the more lateral posterior horn. There is ch ondral surface regularity at the central aspect of the medial tibial plateau and along the anterior t o central weightbearing medial femoral condyle. Lateral compartment: Incomplete discoid lateral meniscus which measures 16.5 cm in width of the meniscal body which progre ssed slightly greater than 20% of the medial collateral diameter of the tibia. No meniscal tear. Rubia cular cartilage is normal. Patellofemoral compartment: There is deep chondral ulceration and fissuring with underlying cortical irregularity and subarticula r edema-like signal change at the caudal aspect of the trochlear groove and medial trochlea as well a s at the cephalad aspect of the lateral patellar facet and apical ridge and more extensively cranioca udally at the medial facet. There is a partial-thickness chondral flap tear extending caudally from t he margin of the region of patellar chondral ulceration. Ligaments and tendons: Anterior and posterior cruciate ligaments are normal. Mild thickening and increased signal on the ant erior margin of the proximal medial collateral ligament without surrounding edema consistent with mil d scarring related to chronic sprain. The fibular collateral ligament complex is normal. Mild distal quadriceps tendinopathy and mild proximal patellar tendinopathy, both without discrete tears. The vis ualized medial and lateral hamstring tendons as well as the iliotibial band are normal. Fluid: Physiologic amount of fluid in the joint space. No loose osteochondral bodies identified. Multilobula fely ganglion cyst at the popliteal recess extending 6.3 cm craniocaudally to the posterior inferior m argin of the occiput tibiofibular joint and measuring up to 1 cm in maximal orthogonal dimensions. Osseous/other: Aside from the degenerative subarticular changes at the patellofemoral compartment there is normal ma rrow signal throughout. No fracture or pathologic marrow replacing process. There is edema at the sup erficial suprapatellar fat pad consistent with fat pad impingement syndrome. IMPRESSION: 1. Complex medial meniscal tear. 2. 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 Reviewed, dictated and finalized at location A. IMPRESSION: 1. Complex medial meniscal tear. 2. Mild osteoarthritis with high-grade chondromalacia in the patellofemoral com partment and moderate grade chondral malacia in the medial compartment.
== END ==
PROVIDERS: PCP Family Medicine Adolescent Medicine; Visit Provider Orthopaedic Surgery
DX: S83.231A Complex tear of medial meniscus, current injury, right knee, initial encounter (principal); X58.XXXA Exposure to other specified factors, initial encounter; M17.11 Unilateral primary osteoarthritis, right knee
CPT/HCPCS: 73721

== ENCOUNTER 2023-01-04 08:36 | Outpatient (CLI) | payer MEDICARE, OTHER, SELFPAY ==
[2023-01-04 08:53] LABS: Basophils Percent Auto 0.5 % (0.2-1.2); Eosinophils Absolute Auto 0.1 K/mm3 (0-0.3); Hematocrit 50.4 % (42.0-52.0); Hemoglobin 16.7 g/dL (14.0-18.0); Immature Granulocyte Absolute 0.05 K/mm3 (0.00-0.031); Immature Granulocyte Percent A 0.8 % (0-0.5); Lymphocytes Percent Auto 21.2 % (18.3-44.2); Mean Corpuscular HGB Conc 33.1 g/dl (32-36); Mean Corpuscular Volume 87.7 fl (80-100); Mean Platelet Volume 9.4 fl (7.4-10.4); Monocytes Absolute Auto 0.5 K/mm3 (0.1-0.6); Monocytes Percent Auto 7.9 % (2.6-8.5); Neutrophils Absolute Auto 4.5 K/mm3 (1.3-6.7); Neutrophils Percent Auto 67.6 % (45.5-73.1); Platelet Count Result 229 k/mm3 (150-375); Red Blood Count 5.75 M/mm3 (4.6-6.20); Red Cell Distribution Width 14.1 % (11.5-14.5); White Blood Count 6.6 K/mm3 (4.5-10.0)
[2023-01-04 16:00] LABS: Vitamin D 25 Hydroxy 57.6 ng/mL
[2023-01-04 16:09] LABS: Alanine Aminotransferase 39 U/L (6-50); Albumin Level 4.2 g/dL (3.5-5.1); Alkaline Phosphatase 56 U/L (38-126); Anion Gap 6 mmol/L (8-16); Aspartate Amino Transferase 36 U/L (17-59); Bilirubin,Total 0.6 mg/dL (0.2-1.3); Blood Urea Nitrogen 23 mg/dL (9-20); Calcium 9.2 mg/dL (8.4-10.2); Carbon Dioxide 26 mmol/L (22-30); Chloride 105 mmol/L (98-107); Estimated Glomerular Filt Rate > 60; Glucose 93 mg/dL (65-110); Potassium 3.9 mmol/L (3.4-5.0); Sodium 137 mmol/L (137-145)
[2023-01-04 16:12] LABS: Iron 117 ug/dL (49-181)
[2023-01-04 16:17] LABS: Free T4 Free Thyroxine 1.52 ng/mL (0.78-2.19)
[2023-01-04 16:21] LABS: Percent Iron Saturation 33 % (20-50)
[2023-01-04 17:12] LABS: Folic Acid > 20.0 ng/mL (2.76->20)
== END 2023-01-04 08:37 | disposition home or self-care (01) ==
LOC: ANHLAB 08:38
PROVIDERS: Internal Medicine Endocrinology, Diabetes & Metabolism; PCP Family Medicine Adolescent Medicine; Visit Provider Internal Medicine Hematology & Oncology
DX: E21.0 Primary hyperparathyroidism (principal); D50.9 Iron deficiency anemia, unspecified
CPT/HCPCS: 36415; 80053; 82306; 82310; 82330; 82607; 82728; 82746; 83540; 83550; 83970; 84439; 84443; 85025

== ENCOUNTER 2023-03-17 18:18 | Emergency (ER) | payer MEDICARE, OTHER, SELFPAY ==
--- NOTE | ~2023-03-17 | XR_ITS ---
EXAMINATION: XR chest 2V Exam Date/Time: 03/17/2023 18:44 COMPRESSOR ENGINEER HISTORY: cp Comparison: 02/06/2017. RESULT: Lines, tubes, and devices: Partially visualized spinal fusion hardware. Lungs and pleura: Clear. Cardiomediastinal silhouette: Stable. Other: No acute osseous or upper abdominal finding. IMPRESSION: No acute cardiopulmonary process. Reviewed, dictated and finalized at location K. RESSOR ENGINEER
--- NOTE | 2023-03-17 18:19 | ECG_ITS ---
Measurements Intervals [place] Rate: 73 P: 38 [place]: 197 QRS: -34 QRSD: 113 T: 45 QT: 355 QTc: 393 Interpretive Statements SINUS RHYTHM INCOMPLETE RIGHT BUNDLE BRANCH BLOCK BASELINE ARTIFACT- II, III, AVL, AVF BORDERLINE ECG NO PREVIOUS ECG AVAILABLE FOR COMPARISON Electronically Signed On 03-17-2023 19:19:43 TWISTING MACHINE OPERATOR by Unruly Al D.O.
[2023-03-17 18:28] VITALS: BP 150/72; PULSE 75; RESP 20; TEMP 36.6; O2SAT 100
[2023-03-17] MEDS: ASPIRIN 81 MG CHEWABLE TABLET 324 MG PO (18:41)
[2023-03-17 18:44] LABS: Basophils Percent Auto 0.6 % (0.2-1.2); Eosinophils Absolute Auto 0.2 K/mm3 (0-0.3); Eosinophils Percent Auto 4.4 % (0-4.4); Hematocrit 48.3 % (42.0-52.0); Hemoglobin 15.9 g/dL (14.0-18.0); Immature Granulocyte Absolute 0.02 K/mm3 (0.00-0.031); Immature Granulocyte Percent A 0.4 % (0-0.5); Lymphocytes Absolute Auto 1.02 K/mm3 (0.9-3.2); Lymphocytes Percent Auto 20.2 % (18.3-44.2); Mean Corpuscular HGB Conc 32.9 g/dl (32-36); Mean Corpuscular Hemoglobin 28.8 pg (26-34); Mean Corpuscular Volume 87.5 fl (80-100); Monocytes Absolute Auto 0.6 K/mm3 (0.1-0.6); Monocytes Percent Auto 12.3 % (2.6-8.5); Neutrophils Absolute Auto 3.1 K/mm3 (1.3-6.7); Neutrophils Percent Auto 62.1 % (45.5-73.1); Platelet Count Result 172 k/mm3 (150-375); Red Blood Count 5.52 M/mm3 (4.6-6.20); Red Cell Distribution Width 13.8 % (11.5-14.5); White Blood Count 5.1 K/mm3 (4.5-10.0)
[2023-03-17 18:55] LABS: INR 0.9; Partial Thromboplastin Time 35.1 SECONDS (22.3-36.8); Prothrombin Time 12.9 Seconds (11.1-14.7)
[2023-03-17 19:08] LABS: Alanine Aminotransferase 29 U/L (6-50); Albumin Level 4.4 g/dL (3.5-5.1); Alkaline Phosphatase 54 U/L (38-126); Anion Gap 9 mmol/L (8-16); Aspartate Amino Transferase 32 U/L (17-59); Bilirubin,Total 0.5 mg/dL (0.2-1.3); Blood Urea Nitrogen 23 mg/dL (9-20); Calcium 9.2 mg/dL (8.4-10.2); Carbon Dioxide 25 mmol/L (22-30); Chloride 103 mmol/L (98-107); Estimated CRCL calculation 38 ml/min; Estimated Glomerular Filt Rate 46; Glucose 104 mg/dL (65-110); Lipase 82 U/L (23-300); Sodium 137 mmol/L (137-145)
[2023-03-17 19:20] LABS: Troponin I < 0.012 ng/mL (0.000-0.034)
--- NOTE | 2023-03-17 20:11 | PC.NURSE ---
Pt approached triage desk and voiced intent to leave and follow up with PCP. Pt educated on risks of leaving and benefits of waiting to see provider, verbalized understanding. Pt ambulated out of ED with steady gait, in no obvious distress.
== END 2023-03-17 20:23 | disposition left against medical advice (07) ==
LOC: ANHED 20:18
PROVIDERS: Emergency Provider Emergency Medicine; PCP Family Medicine Adolescent Medicine
DX: R07.9 Chest pain, unspecified (principal)
CPT/HCPCS: 36415; 71046; 80053; 83690; 84484; 85025; 85610; 85730; 93005; 99199; A9270

== ENCOUNTER 2023-09-24 12:53 | Outpatient (CLI) | payer MEDICARE, OTHER, SELFPAY | END 2023-09-24 12:54 | disposition home or self-care (01) | LOC: ANHAUDASC 12:54 | PROVIDERS: PCP Family Medicine Adolescent Medicine; Visit Provider Family Medicine Adolescent Medicine | DX: H90.3 Sensorineural hearing loss, bilateral (principal) | CPT/HCPCS: 92557; 92567 ==

== ENCOUNTER 2024-01-24 08:18 | Outpatient (CLI) | payer MEDICARE, OTHER, SELFPAY ==
[2024-01-24 08:41] LABS: Basophils Percent Auto 0.7 % (0.2-1.2); Eosinophils Absolute Auto 0.2 K/mm3 (0-0.3); Eosinophils Percent Auto 4.6 % (0-4.4); Hematocrit 48.1 % (42.0-52.0); Hemoglobin 15.9 g/dL (14.0-18.0); Immature Granulocyte Absolute 0.01 K/mm3 (0.00-0.031); Immature Granulocyte Percent A 0.2 % (0-0.5); Lymphocytes Absolute Auto 0.98 K/mm3 (0.9-3.2); Lymphocytes Percent Auto 21.5 % (18.3-44.2); Mean Corpuscular HGB Conc 33.1 g/dl (32-36); Mean Corpuscular Hemoglobin 28.8 pg (26-34); Mean Platelet Volume 9.6 fl (7.4-10.4); Monocytes Absolute Auto 0.4 K/mm3 (0.1-0.6); Monocytes Percent Auto 9.2 % (2.6-8.5); Neutrophils Absolute Auto 2.9 K/mm3 (1.3-6.7); Neutrophils Percent Auto 63.8 % (45.5-73.1); Platelet Count Result 170 k/mm3 (150-375); Red Blood Count 5.53 M/mm3 (4.6-6.20); Red Cell Distribution Width 13.9 % (11.5-14.5); White Blood Count 4.6 K/mm3 (4.5-10.0)
[2024-01-24 10:48] LABS: Alanine Aminotransferase 31 U/L (6-50); Albumin Level 4.4 g/dL (3.5-5.1); Alkaline Phosphatase 56 U/L (38-126); Anion Gap 9 mmol/L (4-12); Aspartate Amino Transferase 40 U/L (17-59); Bilirubin,Total 0.7 mg/dL (0.2-1.3); Blood Urea Nitrogen 22 mg/dL (9-20); Calcium 9.1 mg/dL (8.4-10.2); Carbon Dioxide 26 mmol/L (22-30); Chloride 102 mmol/L (98-107); Estimated Glomerular Filt Rate > 60; Glucose 98 mg/dL (65-110); Potassium 3.9 mmol/L (3.4-5.0); Sodium 137 mmol/L (137-145)
[2024-01-24 11:55] LABS: Folic Acid > 20.0 ng/mL (2.76->20)
[2024-01-24 15:43] LABS: Iron 105 ug/dL (49-181); Percent Iron Saturation 30 % (20-50)
== END 2024-01-24 08:19 | disposition home or self-care (01) ==
LOC: ANHLAB 08:26
PROVIDERS: PCP Family Medicine Adolescent Medicine; Visit Provider Internal Medicine Hematology & Oncology
DX: D50.9 Iron deficiency anemia, unspecified (principal)
CPT/HCPCS: 36415; 80053; 82607; 82728; 82746; 83540; 83550; 85025

== ENCOUNTER 2024-09-19 08:16 | Outpatient (CLI) | payer MEDICARE, OTHER, SELFPAY ==
--- OUTSIDE RECORDS SUMMARY | 2024-09-19 08:22 | XMS_ITS | Continuity of Care Document ---
Author Organization [facility] Address [address] [place] [address] Phone Care Team Providers Care Diamond Assorter Name Role Phone Leoncio Hinkle Unavailable Unavailable Advance Directives Directive Yes / No Effective Date File Name No Information Encounters Encounter Description Practice Location Reason(s) For Visit Diagnoses Date Provider Providers Copied on Encounter [facility], [address] [place] [address] [address], [place], [place], [id number], [place] tel:[phone] [facility] No Information Dec- 1-200 2 Manan Fang. [address] , [address], [place], [address], [place]. tel:[phone] Family History Family Member Type Diagnosis Age At Onset No Information Payers Payer name Insurance type Covered democrat ID Authoriza tion(s) No Information Social History [...]
--- OUTSIDE RECORDS SUMMARY | 2024-09-19 08:23 | XMS_ITS | Data Portability ---
Author Organization [place] - [facility] [employer], Main Office Address [address] [place] [address] Care Team Providers Care Foreign Exchange Student Coordinator Name Role Phone NAZIA MENA Primary Care Provider NAZIA MENA Referring Provider Assessment Encounter Date Assessment Date Assessment LastModified by Organization Details LastModified Time 10/30/2022 10/30/2022 This note is dictated and transcribed by [employer]. School Bus Mechanic variances may occur. Despite proofreading, typographical errors may occur. Not available 10/30/2022 12:41:49 06/08/2023 06/08/2023 Patient returns. He is now 6 years out after left knee replacement. He is here for 5 year radiographic surveillance x-rays. Feels his left knee is doing well. 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 Exam today is left knee shows normal appearance to the knee replacement scar. Range of motion 0-135 degrees. Has slight soreness lateral to patellar tendon when I push in this degree of flexion. He has 1 mm medial 2 mm lateral opening and extension. He has 3 mm of anterior posterior drawer so he has excellent stability. He does complain of rather severe lower back pain sitting up from a supine position today which is typical for him. X-rays of his left show no radiographic complications with his left knee replacement. Impression: Mr. Griffin appears to be doing very well now 6 years out of her left total knee arthroplasty. I would like to see him back in 5 years for routine radiographic surveillance or sooner if he has any problems. [email or web address] Not available 06/10/2023 15:21:20 11/26/2023 11/26/2023 This note is dictated and transcribed by [employer]. School Bus Mechanic variances may occur. Despite proofreading, typographical errors may occur. Occasional wrong-word or 'nfeek-x-poeo' substitutions may have occurred due to the inherent limitations of voice recording. Read the chart carefully and recognize, using context, where substitutions have occurred. Not available 11/26/2023 15:57:30 02/25/2024 02/25/2024 This note is dictated and transcribed by [employer]. School Bus Mechanic variances may occur. Despite proofreading, typographical errors may occur. Occasional wrong-word or 'hpmdi-s-mohu' substitutions may have occurred due to the inherent limitations of voice recording. Read the chart carefully and recognize, using context, where substitutions have occurred. Not available 02/25/2024 15:01:07 06/02/2024 06/02/2024 This note is dictated and transcribed by [employer]. School Bus Mechanic variances may occur. Despite proofreading, typographical errors may occur. Occasional wrong-word or 'yojbq-n-udzc' substitutions may have occurred due to the inherent limitations of voice recording. Read the chart carefully and recognize, using context, where substitutions have occurred. Not available 06/02/2024 11:58:56 Plan of Treatment Reminders Order Date Submit Date Provider Last Modified By Organization Details Last Modified Time Details Appointments Establish ed Patient 15 2024 10:15A Clementina Peck DPM Not available Not available Not available Lab None recorded. Referral None recorded. Procedures None recorded. Surgeries None recorded. Imaging XR, knee 2023 024 [email or web address] [place], [address], [place], [address], 06/11/2023 09:57:51 Medication Orders ketoconaz ole 2 % topical cream 2023 024 [facility], [place], [address], 02/25/2024 15:01:48 ketoconaz ole 2 % topical cream 2023 024 [facility] [address], [address], [place], [address], 11/26/2023 15:59:36 Patient TargetsNo targets recorded. Patient InstructionsNo instructions recorded. Reason for Referral None Reported. Results Created Date Observation Date Name Description Value Unit Range Abnormal Flag Note LastModifiedBy Organization Detail LastModifiedTime 06/08/19 24 XR, knee No observ ation record ed. [email or web address] [email or web address] [place] [address], [place], [address], 06/10/2023 15:19:25 Result Notes None recorded. Problems Name Problem SNOMED Code Status Onset Date Resolution Date Notes Provider Name and Address Organization Details Recorded Time Radiothera py follow-up 730492990 Active Not Available [facility] 3 14:09:51 Osteoarthr itis of knee 655068976 Active Not Available [facility] 3 14:09:51 Current tear of medial cartilage AND/OR meniscus of knee Active Not Available [facility] 3 14:09:51 Current tear of lateral cartilage AND/OR meniscus of knee Active Not Available [facility] 3 14:09:51 Osteoarthr itis 332353765 Active Not Available [facility] 3 14:09:51 Onychomyco sis of toenails 670805869 Active 2021 Not Available [facility] 3 14:09:51 Onychomyco sis 845193645 Active 2022 Ryan Peck DPM [address], [address], [place], [address] , [employer] [facility] 3 14:25:14 Dystrophia unguium 74045261 Active 2022 Ryan Peck DPM [address], [address], [place], [address] , [place] [facility] 3 14:25:39 Pain of right knee joint 5493978888950 00 Active 2022 JER Holder, [facility] [employer] [facility] 3 10:29:07 Primary hyperparat hyroidism 12887806 Active 2022 Brittney Leong MD [address], [address], [place], [address] , [facility] [employer] [facility] 3 10:10:54 Pigmented skin lesion 805369302 Active 2022 Brittney Leong MD [address], [address], [place], [address] , [facility] [email or web address] [facility] [employer] [facility] 3 10:16:26 Tear of medial meniscus of knee 683123994 Active 2022 JER Holder, [facility] [employer] [facility] 3 09:44:05 Pain of toe of left foot 7467692342285 08 Active 2023 Ryan Peck DPM [address], [address], [place], [address] , [facility] [email or web address] [facility] [employer] [facility] 4 15:57:37 Pain in toe 227133628 Active 2024 Ryan Peck DPM [address], [address], [place], [address] , [place] [facility] [employer] [facility] 5 11:35:21 Problem Notes None recorded. Procedures Surgical History Date Name Laterality Status Provider Name and Address Organization Details Recorded Time 06/02/19 25 Nail Debridement completed Ryan Peck DPM [address], [place], [address], [facility] [email or web address] [facility] [employer] [facility] 06/02/2024 11:58:52 02/25/20 24 Nail Debridement completed Ryan Peck DPM [address], [place], [address], [facility] [employer] [facility] 02/25/2024 15:01:41 11/26/19 24 Nail Debridement completed Ryan Peck DPM [address], [place], [address], [facility] [email or web address] [facility] [employer] [facility] 11/26/2023 15:57:25 07/10/20 23 Nail Debridement completed Ryan Peck DPM [address] [facility], [address], [place], [address], [facility] [employer] [facility] 10/30/2022 12:41:38 Colonoscopy completed Not Available [facility] 06/21/2022 14:08:58 procedure on eustachian tube completed Not Available [facility] 06/21/2022 14:08:58 EGD completed Not Available [facility] 04/2022 14:08:58 repair of meniscus completed Not Available [facility] 06/21/2022 14:08:58 operation on lumbar spine completed Not Available [facility] 06/21/2022 14:08:58 Knee Replacement completed Not Available [facility] 06/21/2022 14:08:58 Imaging Results None recorded. Procedure Notes None recorded. Medical Equipment None Reported. Allergies Allergen ID Allergen Name Allergen Category Reaction Reaction Severity Criticality Documentation Date Start Date Code Code System Note Provider Name and Address Organization Details Recorded Time 91181 Xanax medicatio n Not available Not available Not available 06/21/202211724 3 RxNorm Not Available [facility] 3 14:12:26 98405 vancomyci n medicatio n Not available Not available Not available 06/21/2022 69400 RxNorm pt said he can not have this in a quick situa tion Not Available [facility] 3 14:12:26 Medications Name Sig Start Date Stop Date Status Note LastModified by Organization Details LastModified Time celecoxib 200 mg capsule TAKE ONE CAPSULE BY MOUTH TWICE A DAY 11/02 completed Not Available Not Available Not Available amoxicillin 500 mg capsule TAKE FOUR CAPSULES BY MOUTH ONE HOUR BEFORE APPOINTME NT 09/08 completed Not Available Not Available Not Available furosemide 40 mg tablet 11/02 completed Not Available Not Available Not Available atorvastati n 40 mg tablet TAKE 1 TABLET EVERY DAY 11/02 completed Not Available Not Available Not Available neomycin-po lymyxin-hyd rocort 3.5 mg/mL-10,00 0 unit/mL-1 % ear solution 11/02 completed Not Available Not Available Not Available prednisone 10 mg tablet TAKE 6 TABLETS BY MOUTH ONCE DAILY FOR 3 DAYS, THEN 4 TABS ONCE DAILY FOR 3 DAYS, THEN 2 TABS ONCE DAILY FOR 3 DAYS, THEN 1 TAB ONCE DAILY FOR 4 DAYS DIRECTED. SEE TAPER INSTRUCTI ONS. active Not Available Not Available No t Available doxycycline hyclate 100 mg capsule TAKE 1 CAPSULE BY MOUTH TWICE DAILY 09/11 completed Not Available Not Available Not Available Vitamin C 500 mg tablet Take every day by oral route. 09/11 completed Not Available Not Available Not Available indapamide 2.5 mg tablet TAKE 1 TABLET BY MOUTH ONCE DAILY active Not Available Not Available No t Available ibuprofen 800 mg tablet TAKE 1 TABLET BY MOUTH 3 TIMES A DAY 11/02 completed Not Available Not Available Not Available tizanidine 4 mg tablet 11/02 completed Not Available Not Available Not Available metoprolol succinate ER 50 mg tablet,exte nded release 24 hr TAKE 1 TABLET BY MOUTH ONCE DAILY 11/02 completed Not Available Not Available Not Available hydrocodone 5 mg-acetamin ophen 325 mg tablet TAKE 1 TO 2 TABLETS BY MOUTH AT BEDTIME NEEDED 11/02 completed Not Available Not Available Not Available lisinopril 20 mg tablet Take 2 tablets every day by oral route in the morning for 90 days. 09/08 completed Not Available Not Available Not Available methylpredn isolone 4 mg tablet 02/20 completed Not Available Not Available Not Available Tylenol Arthritis Pain 650 mg tablet,exte nded release Take 2 tablets every 8 hours by oral route. 2021 active Not Available Not Available Not Avai lable nifedipine ER 30 mg tablet,exte nded release TAKE 1 TABLET BY MOUTH ONCE DAILY 06/08 completed Not Available Not Available Not Available allopurinol 100 mg tablet TAKE 1 TABLET BY MOUTH ONCE DAILY active Not Available Not Available No t Available simvastatin 40 mg tablet TAKE 1 TABLET BY MOUTH EVERY DAY 11/02 completed Not Available Not Available Not Available baclofen 20 mg tablet 02/20 completed Not Available Not Available Not Available oxycodone-a cetaminophe n 5 mg-325 mg tablet TAKE 1 TABLET BY MOUTH 4 TIMES DAILY NEEDED FOR PAIN 11/25 completed Not Available Not Available Not Available alprazolam 0.5 mg tablet 11/02 completed Not Available Not Available Not Available prednisolon e acetate 1 % eye drops,suspe nsion INSTILL 1 DROP INTO LEFT EYE THREE TIMES DAILY UNITL NEXT VISIT active Not Available Not Available No t Available tamsulosin 0.4 mg capsule 02/20 completed Not Available Not Available Not Available diazepam 2 mg tablet 02/20 completed Not Available Not Available Not Available baclofen 10 mg tablet 11/02 completed Not Available Not Available Not Available amlodipine 10 mg tablet TAKE 1 TABLET BY MOUTH ONCE DAILY 06/08 completed Not Available Not Available Not Available cephalexin 500 mg capsule TAKE 1 CAPSULE BY MOUTH EVERY 6 HOURS FOR 4 DOSES 11/02 completed Not Available Not Available Not Available pantoprazol e 40 mg tablet,kimberly yed release TAKE 1 TABLET BY MOUTH TWICE DAILY active Not Available Not Available No t Available naproxen sodium 550 mg tablet TAKE 1 TABLET TWICE A DAY 11/02 completed Not Available Not Available Not Available ferrous sulfate 325 mg (65 mg iron) tablet Take 2 tablets every day by oral route. 09/15 completed Not Available Not Available Not Available gabapentin 300 mg capsule TAKE 1 TO 2 CAPSULES BY MOUTH THREE TIMES DAILY active Not Available Not Available No t Available omeprazole 20 mg capsule,del ayed release TAKE 1 CAPSULE EVERY DAY 11/02 completed Not Available Not Available Not Available lisinopril 20 mg-hydrochl orothiazide 25 mg tablet TAKE 1 TABLET BY MOUTH ONCE DAILY 06/08 completed Not Available Not Available Not Available diclofenac sodium 75 mg tablet,kimberly yed release 11/02 completed Not Available Not Available Not Available hydrochloro thiazide 25 mg tablet TAKE 1 TABLET BY MOUTH EVERY DAY 11/02 completed Not Available Not Available Not Available Baby Aspirin 81 mg chewable tablet Chew 1 tablet every day by oral route. 2021 active Not Available Not Available Not Avai lable mupirocin 2 % topical ointment APPLY INTRANASA LLY AT MINUMUM TWICE DAILY active Not Available Not Available No t Available zolpidem 5 mg tablet TAKE 1 TO 2 TABLETS BY MOUTH AT BEDTIME 11/02 completed Not Available Not Available Not Available metoprolol succinate ER 25 mg tablet,exte nded release 24 hr 11/02 completed Not Available Not Available Not Available levofloxaci n 500 mg tablet 11/02 completed Not Available Not Available Not Available zolpidem 10 mg tablet 11/02 completed Not Available Not Available Not Available methylpredn isolone 4 mg tablets in a dose pack take po as directed 06/08 completed Not Available Not Available Not Available ipratropium bromide 42 mcg (0.06 %) nasal spray USE 2 SPRAY(S) IN EACH NOSTRIL THREE TIMES DAILY 11/25 completed Not Available Not Available Not Available colchicine 0.6 mg tablet TAKE 1 TABLET BY MOUTH TWICE DAILY 06/08 completed Not Available Not Available Not Available celecoxib 100 mg capsule 02/20 completed Not Available Not Available Not Available ketoconazol e 2 % topical cream APPLY TO LEFT GREAT TOENAIL ONCE DAILY 2023 active Not Available Not Available Not Avai lable oxybutynin chloride 5 mg tablet 02/20 completed Not Available Not Available Not Available lisinopril 40 mg tablet TAKE 1 TABLET BY MOUTH ONCE DAILY active Not Available Not Available No t Available losartan 100 mg tablet TAKE 1 TABLET BY MOUTH ONCE DAILY 06/08 completed Not Available Not Available Not Available fluticasone propionate 50 mcg/actuati on nasal spray,suspe nsion USE 2 SPRAYS IN EACH NOSTRIL DAILY 11/02 completed Not Available Not Available Not Available doxycycline hyclate 100 mg tablet 11/02 completed Not Available Not Available Not Available diazepam 5 mg tablet 02/20 completed Not Available Not Available Not Available amoxicillin 875 mg-potassiu m clavulanate 125 mg tablet TAKE 1 TABLET BY MOUTH TWICE DAILY 11/25 completed Not Available Not Available Not Available iron 65 mg tablet Take every day by oral route. 09/15 completed Not Available Not Available Not Available oxycodone 5 mg tablet Take 1 tablet as needed by oral route. 11/25 completed Not Available Not Available Not Available neomycin 3.5 mg/g-polymy juanis B 10,000 unit/g-dexa meth 0.1 % eye oint 11/02 completed Not Available Not Available Not Available moxifloxaci n 0.5 % eye drops INSTILL 1 DROP INTO RIGHT EYE 4 TIMES DAILY FOR 5 DAYS 02/20 completed Not Available Not Available Not Available rosuvastati n 40 mg tablet TAKE 1 TABLET BY MOUTH ONCE DAILY AT NIGHT active Not Available Not Available No t Available Multivitami n 50 Plus tablet Take by oral route. active Not Available Not Available No t Available Cialis 20 mg tablet 1/2 TO 1 TABLET NEEDED 11/02 completed Not Available Not Available Not Available Lyrica 75 mg capsule 11/02 completed Not Available Not Available Not Available baclofen 09/11 completed Not Available Not Available Not Available Stool Softener PRN 11/25 completed Not Available Not Available Not Available Zyrtec PRN 02/24 completed Not Available Not Available Not Available fenofibrate nanocrystal lized 145 mg tablet 02/20 completed Not Available Not Available Not Available oxycodone 10 mg tablet 02/14 completed Not Available Not Available Not Available B12 1,000 mcg 2021 active Not Available Not Available Not Avai lable Eliquis 2.5 mg tablet 11/02 completed Not Available Not Available Not Available Airborne (ascorbate sodium) 2022 active Not Available Not Available Not Avai lable Flonase Allergy Relief active Not Available Not Available Not Available Voltaren Arthritis Pain 1 % topical gel APPLY 2 GRAMS TO THE AFFECTED AREA(S) BY TOPICAL ROUTE 4 TIMES PER DAY 11/25 completed Not Available Not Available Not Available Paxlovid 300 mg (150 mg x 2)-100 mg tablets in a dose pack TAKE 3 TABLETS TOGETHER (TWO 150 MG NIRMATREL VIR TABLETS AND ONE 100 MG RITONAVIR TABLET) BY MOUTH TWICE DAILY FOR 5 DAYS. 11/25 completed Not Available Not Available Not Available D3-5000 5,000 IU 2021 active Not Available Not Available Not Avai lable Vitals Date Recorded Body height Body mass index (BMI) Body weight Heart rate Respiratory rate Body temperature Oxygen saturation Oxygen saturation in Arterial blood by Pulse oximetry Systolic blood pressure Diastolic blood pressure Provider Name and Address Organization Details Last Updated DateTime 5 170.18 cm 30.1 kg/m2 56829.7 4 g 86 /min 16 /min 98 [degF] 98 % 98 % 120 mm[Hg] 70 mm[Hg] Elham [facility] [employer] [facility] 5 11:51:41 Date Recorded Body height Provider Name an d Address Organization Details Last Updated DateTime 06/08/2023 170.18 cm JER Holder [facility] [employer] [facility] 06/08/2023 10:16:05 Date Recorded Body height Body mass index (BMI) Body weight Heart rate Respiratory rate Body temperature Oxygen saturation Oxygen saturation in Arterial blood by Pulse oximetry Systolic blood pressure Diastolic blood pressure Provider Name and Address Organization Details Last Updated DateTime 4 170.18 cm 30.1 kg/m2 48465.7 4 g 68 /min 18 /min 97.7 [degF] 98 % 98 % 130 mm[Hg] 80 mm[Hg] Elham Melara [facility] [employer] 15:15:02 Date Recorded Body height Body mass index (BMI) Body weight Heart rate Respiratory rate Oxygen saturation Oxygen saturation in Arterial blood by Pulse oximetry Systolic blood pressure Diastolic blood pressure Provider Name and Address Organization Details Last Updated DateTime 170.18 cm 30.1 kg/m2 00209.7 4 g 64 /min 14 /min 98 % 98 % 98 mm[Hg] 61 mm[Hg] Hortensia Victoria [facility] [employer] 14:34:51 Social History Question Answer Notes LastModified by Organizat ion Details LastModified Time Tobacco Smoking Status Former Smoker Iman ventura [facility] [employer] [facility] 06/08/2023 10:07:50 What Is Your Level Of Caffeine Consumption? Heavy 2-3 Cups Per Day [id number] Information not available 06/21/2022 What Type Of Diet Are You Following? REGULAR [id number] Information not available 06/21/2022 When Did You Quit Smoking? 17+yearssin celastciangel ette Has Cigar On Rare Occassion [email or web address] Information not available 06/08/2023 What Was The Date Of Your Most Recent Tobacco Screening? 03/06/2022 [email or web address] Information not available 06/08/2023 Have You Ever Been Counseled For Unhealthy Alcohol Use? No [email or web address] Information not available 06/08/2023 What Is Your Relationship Status? [id number] Information not available 06/21/2022 Has Tobacco Cessation Counseling Been Provided? No [email or web address] Information not available 06/08/2023 Do You Have Any Dietary Restrictions? No Avoids Spicy Foods Due To Ulcer [email or web address] Information not available 06/08/2023 Sex: Male Functional Status Question Answer Note LastModified by Organizat ion Details LastModified Time Do you use any illicit or recreational drugs? No [email or web address] Information not available 06/08/2023 Do you or have you ever used any other forms of tobacco or nicotine? No [email or web address] Information not available 06/08/2023 What is your level of alcohol consumption? Moderate 4-5 drinks per week [id number] Information not available 06/21/2022 What is your exercise level? Occasional walking [id number] Information not available 06/21/2022 Mental Status None recorded. Family History Relationship Description Onset Age of this Age Resolved Age Notes LastModified by Organization Details LastModified Time Mother Malignant tumor of breast [email or web address] Not available 2024 10:45:36 Mother Arthritis Not availab le 06/02/2024 10:45:36 Mother Diabetes mellitus [id number] Not available 06/21/2022 14:08:59 Mother Hypertensive disorder [id number] Not available 06/21/2022 14:08:59 Father Myocardial infarction [id number] Not available 06/21/2022 14:08:59 Father Hypertensive disorder [id number] Not available 06/21/2022 14:08:59 Father Heart disease [id number] Not available 06/21/2022 14:08:59 Father Disorder of cellular component of blood [email or web address] Not available 2024 10:45:36 Father Family history of stroke [email or web address] Not available 2024 10:45:36 Father Arthritis Not availab le 06/02/2024 10:45:36 Son Diabetes mellitus [id number] Not available 06/21/2022 14:08:59 Medical History Condition Response ARTHRITIS Y GI PROBLEMS Y DIZZINESS Y HYPERTENSION Y HIGH CHOLESTEROL / HYPERLIPIDEMIA Y EYE PROBLEMS Y SURGERY Y ANEMIA/BLOOD DISORDER Y GOUT Y BACK / NECK PROBLEMS Y DEPRESSION (INCLUDING POST ) STROKE/TIA Y RETINOPATHY Y Past Encounters Encounter ID Performer Location Encounter Start Date Encounter Closed Date Diagnosis/Indication Diagnosis SNOMED-CT Code Diagnosis ICD10 Code Diagnosis Note [id number] Brittney Leong MD [facility] [address] [place] [address] 02/14/2022 00:00:00 02/14/2022 13:31:26 [id number] Ryan Peck DPM _ATHNAM_Clementina IGRATION_ DEFAULT_1 _1 , 03/06/2022 00:00:00 03/07/2022 10:48:03 [id number] Brittney Leong MD [facility] [address] [place] [address] 03/27/2022 00:00:00 03/27/2022 13:56:45 [id number] Ryan Peck DPM [facility] [place] [address] [place] [address] 05/01/2022 00:00:00 05/01/2022 11:45:36 [id number] Ryan Peck DPM [facility] [place] [address] [place] [address] 06/05/2022 00:00:00 06/05/2022 12:37:00 [id number] Ryan Peck DPM [facility] [place] [address] [place] [address] 06/26/2022 12:24:57 06/27/2022 14:28:58 Onychomycosis 164300686 B35.1 left great toenailNai l bed healedCont inue ketoconazo le dailyFollo w-up in 3 months Dystrophia unguium 82431 009 L60.3 Nails 1 through 9 were debrided with sharp mechanical debridemen t without incident. Nails were debrided and greater than 50% length and thickness where needed. [id number] Berto Cruz MD [facility] [place] [address] [place] [address] 09/08/2022 09:58:23 09/11/2022 09:36:47 Pain of right knee joint 0760911198 96624 M25.561 [id number] Brittney Leong [facility] [address] [place] [address] 09/11/2022 09:36:09 09/11/2022 10:19:06 Primary hyperparathyroidism [id number] E21.0 S/P parathyroi dectomy from 06/15- now in remission- serum calcium and PTH appropriat larisa down. Patient blood pressure in range and no longer with fatigue. Will repeat bone density scan in fall 2023- has mild osteopenia of right femoral neck with T score of -1.3. Thyroid levels in range. Will continue to monitor. Pigmented skin lesion 20 [id number] L81.9 Refer to dermatolog y due to fair skin and multiple age spots and new lesion on left leg with dark pigmentati on. Spent up to 25 minutes preparing to see the patient (eg, review of tests), obtaining and/or reviewing separately obtained history, performing a medically appropriat e examinatio n and evaluation , counseling and educating the patient, ordering medication s, tests, along with documentin g clinical informatio n in the electronic health record, independen tly interpreti ng results and communicat ing results to the patient. RTC in 6 months. Patient was provided a handwritte n lab order which contains our fax number. If he chooses to go outside of the [facility] system to obtain labwork he was advised to provide our fax number and my informatio n to the lab he will be obtaining labwork from in order to have his labs properly forwarded over for me to review so there is no loss of follow up due to use of outside network. He was also advised to contact our clinic informing us that he has completed his labwork so we are aware we will need to reach out to the appropriat e laboratory to request his results be forwarded to us so I might have the ability to review and make further medical decision making in his case. He voiced understand ing. [id number] Berto Cruz [facility] [address] [place] [address] 09/15/2022 08:58:46 09/19/2022 09:41:55 Pain of right knee joint [id number] 53870 M25.561 [id number] Berto Cruz MD [facility] [address] [place] [address] 10/27/2022 09:41:04 10/27/2022 14:06:26 Tear of medial meniscus of knee [id number] S83.241D [id number] Ryan Peck DPM [facility] [address] [place] [address] 10/30/2022 12:04:40 10/30/2022 14:00:35 Dystrophia unguium [id number] L60.3 Nails 1 through 9 were debrided with sharp mechanical debridemen t without incident. Nails were debrided and greater than 50% length and thickness where needed. Left great toenail healed with 70% regrowth and normal in natureFoll ow-up as needed for left great toenail procedure [id number] Berto Cruz MD [facility] [address] [place] [address] 06/08/2023 10:05:44 06/11/2023 09:57:51 History of left total knee replacement [id number] Z96.341 [id number] Ryan Peck DPM [facility] [address] [place] [address] 11/26/2023 15:10:43 11/27/2023 10:35:57 Pain of toe of left foot [id number] 67349 M79.675 left great toe Dystrophia unguium 60349 009 L60.3 Nails 1 through 10 were debrided with sharp mechanical debridemen t without incident. Nails were debrided and greater than 50% length and thickness where needed. Onychomyco sis of toenails [id number] B35.1 left great toenailapp ly ketoconazo le topically daily total nails re-grown [id number] Ryan Peck DPM [facility] [address] [place] [address] 02/25/2024 14:18:00 04/17/2024 14:50:46 Onychomycosis of toenails [id number] B35.1 left great toenailapp ly ketoconazo le topically daily total nails re-grown Unable to cut own toenails [id number] Z74.1 [id number] Ryan Peck DPM [facility] [place] [address] [place] [address] 06/02/2024 10:44:38 06/10/2024 15:05:26 Dystrophia unguium 51731684 L60.3 Nails 1 through 10 were debrided with sharp mechanical debridemen t without incident. Nails were debrided and greater than 50% length and thickness where needed. Pain in toe [id number] M7 9.674 M79.675 secondary to toenails Health Concerns Section Related Observation LastModified by Organization Detai ls LastModified Time None Recorded Concern Status LastModified by Organization Details LastModified Time None Recorded Advance Directives Directive None Recorded Payers Encounter Date Sequence Insurance Name Policy Number Policy Ellis Covered Member ID Ellis Member ID Guarantor Name 10/30/2022 1 [place] Valdemar Mcrae Arth [id number] Valdemar Mcrae Arth 10/30/2022 2 [employer] Valdemar Mcrae Arth [id number] Valdemar Mcrae Arth 06/08/2023 1 [place] Valdemar Mcrae Arth [id number] Valdemar Mcrae Arth 06/08/2023 2 [employer] Valdemar Mcrae Arth [id number] Valdemar Mcrae Arth 11/26/2023 1 [place] Valdemar Mcrae Arth [id number] Valdemar Mcrae Arth 11/26/2023 2 [employer] Valdemar Mcrae Arth [id number] Valdemar Mcrae Arth 02/25/2024 1 [place] Valdemar Mcrae Arth [id number] Valdemar Clark 02/25/2024 2 [employer] Clark [id number] Valdemar Clark 06/02/2024 1 [place] Valdemar Clark [id number] Valdemar Clark 06/02/2024 2 [employer] Clark [id number] Valdemar Clark Notes Date Note Type Note Provider Name and Address Organization Details Recorded Time 10/30/2022 text/html . Patient is a 72-year-old male who returns the office for follow-up on onychodystrophy of the left great toenail to which he had a total nail avulsion. Patient has 70% regrown the nail and is normal in nature. Patient is very pleased with the outcomes. Patient states rest his nails are long would like to have them cut. Patient denies any other complaints. Ryan Peck DPM [address] [place], [address], [place] 10/30/2022 12:42:20 11/26/2023 text/html . Patient is a 73-year-old male who presents to the office with complaints of painful left great toenail that is lifting and bruise. Patient states that when he is walking he has pain to the toenail. Patient denies any redness or drainage. Patient states that he has had the toenail avulsed once before. Is likely that high pressure is causing the issue to the nail. Ryan Peck DPM [address], [place], [address], [employer] 11/26/2023 16:00:01 02/25/2024 text/html . Patient is a 73-year-old male who returns to the office for routine foot care. Patient states overall he is doing well he denies any open wounds or infection of the foot. Patient states he continues have numbness and tingling of the left lower extremity. Patient states his toenails are long would like to have them cut. Patient denies any other complaints. Ryan Peck DPM [address] [place], [address], [facility] [employer] [facility] 02/25/2024 15:01:53 06/02/2024 text/html . Patient is a 74-year-old male who returns the office for follow-up on routine foot care. Patient states that he continues have thickened elongated toenails which he is unable to cut. Patient has pain to the toenails. Patient denies any other complaints. Ryan Peck DPM [address], [place], [address], [facility] [employer] [facility] 06/10/2024 11:35:42
--- OUTSIDE RECORDS SUMMARY | 2024-09-19 08:23 | XMS_ITS | Clinical Summary ---
Author Organization [facility] Address [address] [place] [address] Care Team Providers Care [facility] Lab Technician Name Role Phone Homero Stephenson MD Primary Care Prov ider Manjeet Orantes MD Unavailable Melia Whyte DPT Unavailable [phone] Allergies Active Allergy Reactions Criticality Noted Date Comments Alprazolam Anxiety Low 04/01/2019 Vancomycin Unknown 05/02/2017 Red Man syndrome Medications cholecalciferol (VITAMIN D-3) 5,000 unit tabletIndication s:Prevention of Vitamin D Deficiency Take 1 tablet (5,000 Units total) by mouth every other day Active gabapentin (NEURONTIN) 300 mg capsuleIndicatio ns:Neuropathic Pain Take 1 capsule (300 mg total) by mouth 3 (three) times a day Active ipratropium (ATROVENT) 42 mcg (0.06 %) nasal sprayIndications :rhinorrhea Administer 1 spray into each nostril as needed [address] (PROTONIX) 40 mg EC tabletIndication s:Stress Ulcer Prophylaxis,Loulou tment of Non-Bleeding Gastric Disorder Take 1 tablet (40 mg total) by mouth 2 (two) times a day 0 Active oxyCODONE-acetam inophen (PERCOCET) 5-325 mg per tabletIndication s:Pain Take 1 tablet by mouth 3 (three) times a day as needed for pain 2 Active aspirin 81 mg enteric coated tablet Take 1 tablet (81 mg total) by mouth daily 30 tablet 11 2 Active Additional Information Patient taking differently:81 mg oralEvery morning, Indications: prevention of thrombosis, Informant: Self, Reported on 09/05/2023 cetirizine (ZyrTEC) 10 mg capsuleIndicatio ns:Allergic Rhinitis Take 1 tablet by mouth as needed Active acetaminophen ER (TYLENOL) 650 mg 8 hr tabletIndication s:Arthritic Pain Take 2 tablets (1,300 mg total) by mouth 2 (two) times a day 1 Active ascorbic acid (VITAMIN C) 500 mg tablet,chewableI ndications:Vitam in C Deficiency Take 1 tablet/chew tab (500 mg total) by mouth daily after lunch Active cyanocobalamin (Vitamin B-12) 1,000 mcg tabletIndication s:Prevention of Vitamin B12 Deficiency Take 1 tablet (1,000 mcg total) by mouth every morning 2 Active diclofenac sodium (VOLTAREN) 1 % gelIndications:O steoarthritis Apply 4 g topically as needed 1 Active ferrous sulfate 325 mg (65 mg of elemental iron) tabletIndication s:Iron Deficiency Anemia Take 65 mg of elemental iron by mouth daily with breakfast 2 Active [id number] -[id number] (Airborne, ascorbate sodium,) 334-1.7 mg tablet,chewableI ndications:suppl ement Take 1 tablet by mouth every morning 0 Active docusate sodium (DOK) 100 mg tabletIndication s:constipation Take 1 tablet (100 mg total) by mouth as needed for constipation 10 tablet 3 Active Additional Information Patient not taking.Reported on 09/05/2023 ketoconazole (NIZORAL) 2 % cream ketoconazole 2 % topical cream APPLY TO LEFT GREAT TOENAIL ONCE DAILY Active allopurinoL (ZYLOPRIM) 100 mg tablet Take 1 tablet (100 mg total) by mouth daily Active NIFEdipine (NIFEdipine CC) 30 mg 24 hr tablet Take 1 tablet (30 mg total) by mouth daily 30 tablet 11 3 Active Additional Information Patient not taking.Reported on 09/05/2023 lisinopriL (PRINIVIL,ZESTRI L) 40 mg tablet Take 1 tablet (40 mg total) by mouth daily 3 Active oxyCODONE (ROXICODONE) 5 mg immediate release tablet oxycodone 5 mg tablet Take 1 tablet as needed by oral route. 2 Active indapamide (LOZOL) 2.5 mg tablet Take 1 tablet (2.5 mg total) by mouth daily 4 Active fluticasone propionate (FLONASE) 50 mcg/actuation nasal spray Administer 1 spray into each nostril daily Active multivit,tx with iron,minerals (COMPLETE MULTIVITAMIN ORAL) Active mupirocin (BACTROBAN) 2 % ointment APPLY OINTMENT TOPICALLY TWICE DAILY 4 Active rosuvastatin (CRESTOR) 40 mg tablet TAKE 1 TABLET BY MOUTH ONCE DAILY AT NIGHT 90 tablet 5 Active Active Problems Problem Noted Date Diagnosed Date Pain of toe of left foot 11/26/2023 Tear of lateral meniscus of right knee 3 Pigmented skin lesion 09/11/2022 Arthralgia of right knee 09/08/2022 Dystrophia unguium 06/25/2022 Hyperparathyroidism 05/03/2022 Overview (06/01/2022): PROCEDURE PERFORMED (05/30/22[facility]) Parathyroidectomy. 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 Microcytic anemia 10/13/2021 Lordosis of lumbar region 03/18/2019 Overview (03/18/2019): Added automatically from request for surgery [id number] Hypertension 02/11/2019 Hyperlipemia 02/11/2019 Pseudoarthrosis of lumbar spine 12/30/2018 Overview (12/30/2018): Added automatically from request for surgery [id number] Adjacent segment disease with spinal stenosis Overview (12/30/2018): Added automatically from request for surgery [id number] Lumbar radiculopathy 12/30/2018 Overview (12/30/2018): Added automatically from request for surgery [id number] Hx of spinal fusion 12/30/2018 Overview (12/30/2018): Added automatically from request for surgery [id number] Intervertebral disc disorder with radiculopathy of lumbar region 03/26/2018 Overview (03/26/2018): S/p L2 to L5 durham/PSF. 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 Stephen has new symptoms of S1 radiculopathy. He has chronic patchy numbness through his legs that is related to the prior surgeries. MRI shows compression of the left S1 nerve root. We discussed surgical and nonsurgical options. At any point it would be reasonable to for perform a L5-S1 laminectomy and fusion with a Sandoval procedure on the left. He reports that his symptoms do not warrant this at this time. We discussed the role of a spinal cord stimulator. Given his anatomical pathology he would make sense to treat that before considering of spinal cord stimulator. I plan to see him back in 6 months with AP and lateral and flexion-extension lumbar spine films. If he wishes to pursue surgery in the interim that he can call the office and we will arrange for him to undergo L5-S1 laminectomy and fusion with revision of prior hardware L2-L5 with a left L5-S1 Sandoval procedure.. Dizziness Acid indigestion Anxiety Arthritis Immunizations Immunization Administration Dates Next Due Influenza, Unspecified 01/21/2019 Surgical History Surgery Date Site/Laterality Comments LUMBAR SPINE SURGERY 04/23/2011 - 04/22/2012 L3-5 PSF ([facility]) CERVICAL FUSION 04/23/2002 - 04/22/2003 INCISION AND DRAINAGE 04/23/2011 - 04/22/2012 right psoas muscle LUMBAR FUSION 04/23/2016 - 04/22/2017 L3-5 Hardware Removal/L2-5 PSF/Revsion ([facility]) LEG SURGERY 04/23/1969 - 04/22/1970 Left s/p fracture - pins in place FL UPPER GI AIR CONTRAST W KUB 08/27/2018 Left KNEE ARTHROSCOPY W/ MENISCECTOMY 04/23/2013 - 04/22/2014 Left COLONOSCOPY SPINAL FUSION 04/23/2018 - 04/22/2019 T11- sacrum/il UPPER GASTROINTESTINAL ENDOSCOPY FRACTURE SURGERY 04/23/1969 - 04/22/1970 JOINT REPLACEMENT Knee replaced. 03/21/17 Left VASECTOMY 04/23/1989 - 04/22/1990 COLON POLYPECTOMY 04/23/2020 - 04/22/2021 Medical History Medical History Date Comments Hypertension Dizziness Hyperlipidemia Acid indigestion Anxiety Arthritis Fractures PONV (postoperative nausea a nd vomiting) Diverticulosis GERD (gastroesophageal reflu x disease) TIA (transient ischemic attack) Clotting disorder Bleeds easy last 10 years Hard to intubate 04/08/2019 Factors contrib uting to ventilation difficulty: tongue size, limited mouth opening, limited neck motion and limited respiratory reserve Former smoker Hyperparathyroidism Family History Medical History Relation Name Comments Hypertension Brother 1 Raymundo Arth Hypertension Brother 2 Colin Arth Arthritis Father Patrick Arth Heart attack Father Patrick Arth Hypertension Father Patrick Arth Leukemia Father Patrick Arth Stroke Father Patrick Arth Heart attack Maternal Grandfather Erlin Shelton Arthritis Mother Aisha Clark Breast cancer Mother Aisha Arth Cancer Mother Aisha Arth Diabetes Mother Aisha Arth Hypertension Mother Aisha Arth Parkinsonism Mother Aisha Clark Heart attack Paternal Grandfather Leoncio Arth Stroke Paternal Grandfather Leoncio Clark Diabetes Son David Clark Hypertension Son David Clark Relation Name Status Comments Brother 1 Raymundo Arth Brother 2 Colin Arth Father Patrick Arth Maternal Grandfather Erlin Shelton Mother Aisha Clark Alive Paternal Grandfather Leoncio Arth Son David Clark Social History Tobacco Use Types Packs/Day Years Used Date Smoking Tobacco: Some Days Cigars Passive Smoke Exposure: Never Smokeless Tobacco: Never Tobacco Cessation:Ready to Q uit: Not Asked; Counseling Given: Not Answered Comments:Very occassional small cigar Alcohol Use Standard Drinks/Week Comments Yes 4 (1 standard drink = 0.6 oz pur e alcohol) 4 drinks per week AUDIT-C Answer Date Recorded Q1: How often do you have a drink containing alcohol? 4 or more times a week 01/08/2023 Q2: How many drinks containi ng alcohol do you have on a typical day when you are drinking? 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 Gender Identity Not on file Sexual Orientation Straight 07/25/2018 10 :48 AM CDT Obstetrics History Last Filed Vital Signs Vital Sign Reading Time Taken Comments Blood Pressure 120/80 09/05/2023 9:14 AM CDT Pulse 72 09/05/2023 9:14 AM CDT Temperature 36.2 C (97.1 F) 07/03/2022 9:15 AM CDT Respiratory Rate 16 07/03/2022 10:45 AM CDT Oxygen Saturation 94% 09/05/2023 9:14 AM CDT Inhaled Oxygen Concentration - - Weight 75.3 kg (166 lb) 02/04/2024 8:11 AM CDT Height 167.6 cm (5' 6) 02/04/2024 8:11 AM CDT Body Mass Index 26.79 02/04/2024 8:11 AM CDT Plan of Treatment Health Maintenance Due Date Last Done Comments Colon Cancer Screening-Colonoscopy 1950 Depression Screening 1950 DTaP/Tdap/Td Vaccine (1 - Tdap) 1962 Hepatitis B Screening 1969 Pneumococcal vaccine 65+ (1 of 2 - PCV) 1970 Zoster Vaccine (1 of 2) 2001 Abdominal Aortic Aneurysm (A AA) Screen 2016 Well Visit 65+ 2016 Fall Risk Assessment 07/04/2023 07/03/2022 Covid-19 Vaccine ( season) 2023 02/14/2021, 07/03/2020, 06/05/2020 Influenza Vaccine (Season Ended) 2024 01/18/2021, 01/06/2020, 01/21/2019 Hepatitis C Screening Completed 06/14/2011 Medical Devices Implanted Type Area Concrete Handler Device Identifier Shelf Expiration Date Model / Serial / Lot [employer] Inc [id number] - [id number] - [id number] Implanted:Qty: 1 on 02/11/2019 by Earl Shabazz MD at [facility] [employer] Inc 01/17/2024 [id number] / [id number] / [employer] Sofamor Danek [id number] Cd Horizon Break Off Spinal Screw Set Titanium Nonsterile 5.5 Mm - [id number] Implanted:Qty: 10 on 02/11/2019 by Earl Shabazz MD at [facility] Medtronic Inc [id number] / / Medtronic Sofamor Danek [id number] 5.5mm 120mm Curve Abdulkadir Spinal Titanium Nonsterile - [id number] Implanted:Qty: 1 on 02/11/2019 by Earl Shabazz MD at [facility] Med[employer]onic Inc [id number] / / Medtronic Sofamor Danek [id number] Cd Horizon 5.5mm 500mm Line Straight Abdulkadir Spinal Titanium - [id number] Implanted:Qty: 1 on 02/11/2019 by Earl Shabazz MD at [facility] Med[employer]onic Inc [id number] / / Medtronic Inc [id number] Cd Horizon 5/6-6mm Top Spinal Lateral 70mm Connector Abdulkadir - [id number] Implanted:Qty: 1 on 02/11/2019 by Earl Shabazz MD at [facility] [employer] Inc [id number] / / Medtronic Sofamor Danek [id number] Infuse 18mm 26mm Absorbable Sponge Sterile Water Syringe Needle - [id number] Implanted:Qty: 1 on 02/11/2019 by Earl Shabazz MD at [facility] [employer] Inc 11/21/2019 [id number] / / [id number] Medtronic Sofamor Danek [id number] Mastergraft Matrix Block Extension Void Filler Substitute 10ml - [id number] Implanted:Qty: 1 on 02/11/2019 by Earl Shabazz MD at [facility] [employer] Inc [id number] 08/20/2021 [id number] / / [id number] Medtronic Inc [id number] Artic-L L25 Mm X W12 Mm X H9 Mm 5 D Spacer Spinal Titanium - [id number] Implanted:Qty: 1 on 02/11/2019 by Earl Shabazz MD at [facility] [employer] Inc 01/05/2025 [id number] / / Medtronic Sofamor Danek [id number] Solera Cd Horizon 7.5mm 50mm Multiaxial Spine Screw Bone Cocr - [id number] Implanted:Qty: 5 on 02/11/2019 by Earl Shabazz MD at [facility] [employer] Inc [id number] / / Medtronic Sofamor Danek [id number] Solera Cd Horizon 7.5mm 55mm Multiaxial Spine Screw Bone Cocr - [id number] Implanted:Qty: 1 on 02/11/2019 by Earl Shabazz MD at [facility] [employer] Inc [id number] / / Medtronic Sofamor Danek [id number] Solera Cd Horizon 7.5mm 60mm Multiaxial Spine Screw Bone Cocr - [id number] Implanted:Qty: 1 on 02/11/2019 by Earl Shabazz MD at [facility] [employer] Inc [id number] / / Medtronic Sofamor Danek [id number] 7.5mm 65mm Multiaxial Spine Screw Bone Cocr 5.5mm Abdulkadir - [id number] Implanted:Qty: 1 on 02/11/2019 by Earl Shabazz MD at [facility] [employer] Inc [id number] / / Medtronic Inc [id number] 8.5mm 80mm Multiaxial Cannulated Thoracolumbar Screw Bone - [id number] Implanted:Qty: 1 on 02/11/2019 by Earl Shabazz MD at [facility] [employer]onic Inc [id number] / / Integra Lif[employer] Lisa [id number] Duragen Plus 2x2in Patch Resorbable Suturable Cranial Dura Graft - [id number] Implanted:Qty: 1 on 02/13/2019 by Earl Shabazz MD at [facility] [employer] Lisa 12/21/2021 [id number] / / Medtronic Sofamor Danek [id number] Mastergraft Matrix Block Extension Void Filler Substitute 10ml - [id number] Implanted:Qty: 1 on 04/08/2019 by Earl Shabazz MD at [facility] N/A: Spine Lumbar Medtronic Inc 12/21/2021 [id number] / / [id number] Medtronic Sofamor Danek [id number] Infuse 18mm 26mm Absorbable Sponge Sterile Water Syringe Needle - [id number] Implanted:Qty: 1 on 04/08/2019 by Earl Shabazz MD at [facility] N/A: Spine Lumbar Medtronic Inc 08/21/2020 [id number] / / [id number] [facility] [employer] Inc [id number] - [id number] - [id number] Implanted:Qty: 1 on 04/08/2019 by Earl Shabazz MD at [facility] N/A: Spine Lumbar [facility] Surgical Inc 03/13/2024 [id number] / [id number] / Medtronic Sofamor Danek [id number] Solera Cd Horizon 5.5mm 45mm Multiaxial Spine Screw Bone Cocr - [id number] Implanted:Qty: 1 on 04/08/2019 by Earl Shabazz MD at [facility] [employer] Inc [id number] / / Medtronic Sofamor Danek [id number] Solera Cd Horizon 5.5mm 40mm Multiaxial Spine Screw Bone Cocr - [id number] Implanted:Qty: 4 on 04/08/2019 by Earl Shabazz MD at [facility] Med[employer]onic Inc [id number] / / Medtronic Inc [id number] 8.5mm 90mm Multiaxial Cannulated Thoracolumbar Screw Bone - [id number] Implanted:Qty: 1 on 04/08/2019 by Earl Shabazz MD at [facility] [employer]onic Inc [id number] / / Medtronic Inc [id number] Longitude Ii 5.5mm 500mm Straight Abdulkadir Spinal Cocr Molybdenum - [id number] Implanted:Qty: 2 on 04/08/2019 by Earl Shabazz MD at [facility] Medtronic Inc [id number] / / Medtronic Sofamor Danek [id number] Cd Horizon Break Off Spinal Screw Set Titanium Nonsterile 5.5 Mm - [id number] Implanted:Qty: 13 on 04/08/2019 by Earl Shabazz MD at [facility] Medtronic Inc [id number] / / Tele[employer] Weck Horizon Ligate Triangulate Cross Section Wire Small Wide Latex Free - [id number] Implanted:Qty: 1 on 05/30/2022 by Nicolasa Wren MD at [facility] N/A: Neck [employer] Inc 11/13/2026 [id number] / / [id number] Tele[employer] Inc Weck Horizon 6 Cartridge Ligate Triangulate Cross Section Heart - [id number] Implanted:Qty: 1 on 05/30/2022 by Nicolasa Wren MD at [facility] N/A: Neck [employer] Inc [id number] 02/07/2027 [id number] / / [id number] Insurance [facility] MEDICARE [facility] [place] [address] [place] [address] [facility] [place] [address] MEDICARE Advance Directives For more information, please contact: [phone] * Full Code (Latest Code Status on File) Date Activated Date Inactivated Comments 07/03/2022 9:07 AM 07/03/2022 2:51 PM * Full Code Date Activated Date Inactivated Comments 06/08/2021 8:08 AM 06/08/2021 3:06 PM * Full Code Date Activated Date Inactivated Comments 06/14/2020 10:38 AM 06/14/2020 3:58 PM * Full Code Date Activated Date Inactivated Comments 06/14/2020 10:17 AM 06/14/2020 10:38 AM * Full Code Date Activated Date Inactivated Comments 04/08/2019 3:18 PM 04/18/2019 10:17 PM Care Teams [facility] Lab Technician Relationship Specialty Start Date End Date Homero Stephenson MD [address] [place] [address] PCP - General 07/03/16 Manjeet Orantes MD [address] [facility] [address] [place] [address] Live Study Manager Cardiology 01/06/19 Melia Whyte DPT [address] [facility] [facility] [address] [place] [address] Physical Therapist Physical Therapy 03/27/24
--- OUTSIDE RECORDS SUMMARY | 2024-09-19 08:23 | XMS_ITS | Clinical Summary ---
Author Organization [facility] Marino natarajan [facility] Address [address] [place] [address] Care Team Providers Care Wood Heel Finisher Name Role Phone Homero Stephenson MD Primary Care Provider [phone] Allergies Active Allergy Reactions Criticality Noted Date Comments Alprazolam Anxiety Low 04/01/2019 Vancomycin Unknown 05/02/2017 Red Man syndrome Medications gabapentin (NEURONTIN) 300 mg capsule TAKE 1 TO 2 CAPSULES BY MOUTH THREE TIMES DAILY 2 Active pantoprazole (PROTONIX) 40 mg Tablet, Delayed Release (E.C.) Take 40 mg by mouth 2 times daily. 2 Active rosuvastatin (CRESTOR) 40 mg tablet TAKE 1 TABLET BY MOUTH ONCE DAILY AT NIGHT 2 Active multivitamin (DAILY-DENICE) tablet Take 1 Tablet by mouth daily in the morning. Active acetaminophen (Tylenol Arthritis Pain) 650 mg Extended Release tablet 2 Active cholecalciferol , Vitamin D3, (D3-5000) 125 mcg (5,000 unit) Capsule D3-5000 5,000 IU Active allopurinoL (ZYLOPRIM) 100 mg tablet Take 100 mg by mouth daily. Active aspirin (SIMON CHEWABLE) 81 mg Tablet, Chewable every 24 hours. Acti ve lisinopriL (PRINIVIL) 40 mg tablet Take 40 mg by mouth daily. 3 Active oxyCODONE (ROXICODONE) 5 mg tablet oxycodone 5 mg tablet Take 1 tablet as needed by oral route. 2 Active fluticasone propionate (FLONASE) 50 mcg/spray [place], Suspension nasal inhaler Administer 1 [place] in each nostril daily. Active indapamide (LOZOL) 2.5 mg tablet Take 2.5 mg by mouth daily. 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 Microcytic anemia 10/13/2021 Encounters Date Type Department Care Team Description 09/16/2024 External Device Data [facility] ABSTRACTION Provider, Abstract 09/11/2024 External Device Data [facility] ABSTRACTION Provider, Abstract 09/10/2024 External Device Data [facility] ABSTRACTION Provider, Abstract 09/09/2024 External Device Data [facility] ABSTRACTION Provider, Abstract 08/05/2024 External Device Data [facility] ABSTRACTION Provider, Abstract 07/29/2024 External Device Data [facility] ABSTRACTION Provider, Abstract 07/09/2024 External Device Data [facility] ABSTRACTION Provider, Abstract 06/30/2024 External Device Data [facility] ABSTRACTION Provider, Abstract from Last 3 Months Family History Medical History Relation Name Comments Heart Disease Father Cancer Mother Diabetes Mother Heart Disease Mother Relation Name Status Comments Brother 1 Alive Brother 2 Alive Father Mother Social History Tobacco Use Types Packs/Day Years Used Date Smoking Tobacco: Some Days Cigars Tobacco Cessation:Ready to Q uit: Not Asked; Counseling Given: Not Answered Alcohol Use Standard Drinks/Week Comments Yes 0 (1 standard drink = 0.6 oz pur e alcohol) Sex and Gender Information Value Date Recorded Sex Assigned at Not on file Legal Sex Male 3:26 PM CDT Gender Identity Not on file Sexual Orientation Not on file Last Filed Vital Signs Vital Sign Reading Time Taken Comments Blood Pressure 114/71 01/25/2024 11:35 AM CDT Pulse 70 01/25/2024 11:35 AM CDT Temperature 36.6 C (97.8 F) 01/25/2024 11:35 AM CDT Respiratory Rate 16 01/25/2024 11:35 AM CDT Oxygen Saturation 95% 01/25/2024 11:35 AM CDT Inhaled Oxygen Concentration - - Weight 87.5 kg (193 lb) 01/25/2024 11:35 AM CDT Height 170.2 cm (5' 7) 01/10/2022 9:35 AM CDT Body Mass Index 30.23 01/10/2022 9:35 AM CDT Plan of Treatment Upcoming Encounters Date Type Department Care Team (Late st Contact Info) Description 01/29/2025 10:00 AM CDT Office Visit [facility] Oncology and Hematology - Richard [address] [facility] [address] [place] [address] Manoj Ugalde MD [address] [facility] [address] [place] [address] Health Maintenance Due Date Last Done Comments DTAP/TDAP/TD VACCINES (1 - Tdap) 1970 PNEUMOCOCCAL VACCINE 50+ YEA RS (1 of 2 - PCV) 1970 FIT-DNA Q 3 years 1996 FIT/FOBT Q 1 year 1996 Flex Sig/CT Colonography Q 5 years 1996 ZOSTER VACCINE (1 of 2) 2001 Abdominal Aortic Aneurysm (A AA) Screening 2016 INFLUENZA VACCINE (#1) 2023 RSV VACCINE (60+ or ) (1 - 1-dose 75+ series) 2026 COLORECTAL SCREENING 05/14/2030 05/14/2020, 05/14/2020, 10/09/2018 Colorectal Cancer Screening 05/14/2030 Insurance [facility] MEDICARE [facility] A AND B Care Teams Wood Heel Finisher Relationship Specialty Start Date End Date Homero Stephenson MD PCP - General Family Practice 10/13/21
--- OUTSIDE RECORDS SUMMARY | 2024-09-19 08:23 | XMS_ITS | Referral Summary ---
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 Assessment & Plan (03/26/2018 4:43 PM FINGERPRINT TECHNICIAN): Mr. Stephen has new symptoms of S1 [...] Administration Dates Next Due Influenza, Unspecified 01/21/2019 Social History Tobacco Use Types Packs/Day Years [...] when you are drinking? 1 or 2 3 Frequency of Binge Drinking Not on file 12/22 PHQ-2 Answer Date Recorded PHQ-2 Score 0 06/28/2018 Personal Safety Answer Date Recorded Getting School Help Needed Denies 04/11 Sex and Gender Information Value Date Recorded Sex Assigned at Not on file Legal Sex Male 10:27 AM FINGERPRINT TECHNICIAN Gender Identity Not on file Sexual Orientation Straight 07/25/2018 10 :48 AM CDT Last Filed Vital Signs Vital Sign Reading [...] 02/04/2024 8:11 AM CDT Plan of Treatment Not on file Medical Devices Implanted Type Area Cardiac Technologist Device Identifier Shelf Expiration Date Model / Serial / Lot [employer] [id number] - [id number] - [id number] Implanted:Qty: 1 on 02/11/2019 by Earl Shabazz MD at [facility] [employer] 01/17/2024 [id number] / [id number] / Medtronic Sofamor [place]ane[place] [id number] Cd Horizon Break Off Spinal Screw Set Titanium Nonsterile 5.5 Mm - [id number] Implanted:Qty: 10 on 02/11/2019 by Earl Shabazz MD at [facility] [employer] Inc [id number] / / Medtronic Sofamor [place] [id number] 5.5mm 120mm Curve Abdulkadir Spinal Titanium Nonsterile - [id number] Implanted:Qty: 1 on 02/11/2019 by Earl Shabazz MD at [facility] [employer] [id number] / / Med[employer]onic Sofamor [place] [id number] Cd Horizon 5.5mm 500mm Line Straight Abdulkadir Spinal Titanium - [id number] Implanted:Qty: 1 on 02/11/2019 by Earl Shabazz MD at [facility] [employer] Inc [id number] / / Med[employer]onic Inc [id number] Cd Horizon 5/6-6mm Top Spinal Lateral 70mm Connector Abdulkadir - [id number] Implanted:Qty: 1 on 02/11/2019 by Earl Shabazz MD at [facility] [employer] [id number] / / Med[employer]onic Sofamor [place] [id number] Infuse 18mm 26mm Absorbable Sponge Sterile Water Syringe Needle - [id number] Implanted:Qty: 1 on 02/11/2019 by Earl Shabazz MD at [facility] [employer] 11/21/2019 [id number] / / [id number] Medtronic Sof[employer]or [employer] [id number] Mastergraft Matrix Block Extension Void Filler Substitute 10ml - [id number] Implanted:Qty: 1 on 02/11/2019 by Earl Shabazz MD at [facility] [employer] [id number] 08/20/2021 [id number] / / [id number] Med[employer]onic Inc [id number] Artic-L L25 Mm X W12 Mm X H9 Mm 5 D Spacer Spinal Titanium - [id number] Implanted:Qty: 1 on 02/11/2019 by Earl Shabazz MD at [facility] [employer] 01/05/2025 [id number] / / Medtronic Sofamor [place] [id number] Solera Cd Horizon 7.5mm 50mm Multiaxial Spine Screw Bone Cocr - [id number] Implanted:Qty: 5 on 02/11/2019 by Earl Shabazz MD at [facility] [employer] Inc [id number] / / Medtronic Sofamor [place] [id number] Solera Cd Horizon 7.5mm 55mm Multiaxial Spine Screw Bone Cocr - [id number] Implanted:Qty: 1 on 02/11/2019 by Earl Shabazz MD at [facility] [employer] [id number] / / Med[employer]onic Sofamor [place] [id number] Solera Cd Horizon 7.5mm 60mm Multiaxial Spine Screw Bone Cocr - [id number] Implanted:Qty: 1 on 02/11/2019 by Earl Shabazz MD at [facility] [employer] [id number] / / Medtronic Sofamor [place] [id number] 7.5mm 65mm Multiaxial Spine Screw Bone Cocr 5.5mm Abdulkadir - [id number] Implanted:Qty: 1 on 02/11/2019 by Earl Shabazz MD at [facility] [employer] [id number] / / Medtronic Inc [id number] 8.5mm 80mm Multiaxial Cannulated Thoracolumbar Screw Bone - [id number] Implanted:Qty: 1 on 02/11/2019 by Earl Shabazz MD at [facility] [employer] Inc [id number] / / QReca!a Teal OrbitciOrnis Lisa [id number] Duragen Plus 2x2in Patch Resorbable Suturable Cranial Dura Graft - [id number] Implanted:Qty: 1 on 02/13/2019 by Earl Shabazz MD at [facility] QReca!a Teal OrbitciOrnis Lisa 12/21/2021 [id number] / / Medtronic Sofamor [place] [id number] Mastergraft Matrix Block Extension Void Filler Substitute 10ml - [id number] Implanted:Qty: 1 on 04/08/2019 by Earl Shabazz MD at [facility] N/A: Spine Lumbar Med[employer] Inc 12/21/2021 [id number] / / [id number] Medtronic Sofamor [place]ane[employer] [id number] Infuse 18mm 26mm Absorbable Sponge Sterile Water Syringe Needle - [id number] Implanted:Qty: 1 on 04/08/2019 by Earl Shabazz MD at [facility] N/A: Spine Lumbar Medtronic Inc 08/21/2020 [id number] / / [id number] [employer] [id number] - [id number] - [id number] Implanted:Qty: 1 on 04/08/2019 by Earl Shabazz MD at [facility] N/A: Spine Lumbar [employer] 03/13/2024 [id number] / [id number] / Medtronic Sofamor [employer]ane[employer] [id number] Solera Cd Horizon 5.5mm 45mm Multiaxial Spine Screw Bone Cocr - [id number] Implanted:Qty: 1 on 04/08/2019 by Earl Shabazz MD at [facility] [employer] [id number] / / Medtronic Sofamor [place] [id number] Solera Cd Horizon 5.5mm 40mm Multiaxial Spine Screw Bone Cocr - [id number] Implanted:Qty: 4 on 04/08/2019 by Earl Shabazz MD at [facility] [employer] [id number] / / Med[employer]onic Inc [id number] 8.5mm 90mm Multiaxial Cannulated Thoracolumbar Screw Bone - [id number] Implanted:Qty: 1 on 04/08/2019 by Earl Shabazz MD at [facility] [employer] [id number] / / Med[employer]onic Inc [id number] Longitude Ii 5.5mm 500mm Straight Abdulkadir Spinal Cocr Molybdenum - [id number] Implanted:Qty: 2 on 04/08/2019 by Earl Shabazz MD at [facility] [employer] [id number] / / Medtronic Sofamor [employer] [id number] Cd Horizon Break Off Spinal Screw Set Titanium Nonsterile 5.5 Mm - [id number] Implanted:Qty: 13 on 04/08/2019 by Earl Shabazz MD at [facility] [employer] Inc [id number] / / [employer] Weck Horizon Ligate Triangulate Cross Section Wire Small Wide Latex Free - [id number] Implanted:Qty: 1 on 05/30/2022 by Nicolasa Wren MD at [facility] N/A: Neck [employer] 11/13/2026 / / [id number] [employer] Weck Horizon 6 Cartridge Ligate Triangulate Cross Section Heart [id number] - [id number] Implanted:Qty: 1 on 05/30/2022 by Nicolasa Wren MD at [facility] N/A: Neck [employer] [id number] 02/07/2027 [id number] / / [id number] Insurance [employer] [facility] Address: [address] [address] [employer] Advance Directives For more information, please contact: [phone] * Full Code (Latest Code Status on [...] 3:18 PM 04/18/2019 10:17 PM Care Teams Radiology Rn Relationship Specialty Start Date End Date Homero Stephenson MD [address] [place] [address] PCP - General 07/03/16 Manjeet Orantes MD [address] [facility] [address] [place] [address] Datastage Consultant Cardiology 01/06/19 Melia Whyte DPT [address] [facility] [address] [place] [address] Physical Therapist Physical Therapy 03/27/24
[2024-09-19 19:56] LABS: Alanine Aminotransferase 40 U/L (6-50); Albumin Level 4.3 g/dL (3.5-5.1); Alkaline Phosphatase 60 U/L (38-126); Anion Gap 5 mmol/L (4-12); Aspartate Amino Transferase 68 U/L (17-59); Bilirubin,Total 0.6 mg/dL (0.2-1.3); Blood Urea Nitrogen 25 mg/dL (9-20); Calcium 9.5 mg/dL (8.4-10.2); Carbon Dioxide 31 mmol/L (22-30); Chloride 103 mmol/L (98-107); Cholesterol 179 mg/dL (0-200); Estimated Glomerular Filt Rate 60; Glucose 86 mg/dL (65-110); HDL Direct 45 mg/dL; Potassium 4.3 mmol/L (3.4-5.0); Sodium 139 mmol/L (137-145); Triglycerides 295 mg/dL (<150)
[2024-09-19 20:14] LABS: LDL Cholesterol Direct 70 mg/dL
[2024-09-23 13:43] LABS: Testosterone Total 279 ng/dL (250-1100)
== END 2024-09-19 08:17 | disposition home or self-care (01) ==
PROVIDERS: PCP Family Medicine Adolescent Medicine; Visit Provider Family Medicine Adolescent Medicine
DX: Z12.5 Encounter for screening for malignant neoplasm of prostate (principal); E78.2 Mixed hyperlipidemia; I10 Essential (primary) hypertension; R53.83 Other fatigue
CPT/HCPCS: 36415; 80053; 80061; 84153; 84403; G0103

== ENCOUNTER 2025-01-23 09:38 | Outpatient (CLI) | payer MEDICARE, OTHER, SELFPAY ==
--- OUTSIDE RECORDS SUMMARY | 2002-01-01 10:15 | XMS_ITS | Continuity of Care Document ---
Author Organization [facility] Address [address] [facility] [address] [place] [address] Phone Care Team Providers Care Distributing Clerk Name Role Phone Leoncio Hinkle Unavailable Unavailable Advance Directives Directive Yes / No Effective Date File Name No Information Encounters Encounter Description Practice Location Reason(s) For Visit Diagnoses Date Provider Providers Copied on Encounter [facility], [address] [place] [address] [address], [place], [place], [id number], [place] tel:[phone] [facility] No Information Dec- 1-200 2 Manan Fang. [address] , [address], [place], [address], [place]. tel:[phone] Family History Family Member Type Diagnosis Age At Onset No Information Payers Payer name Insurance type Covered libertarian ID Authoriza tion(s) No Information Social History Type Description Quantity Date Captured Comments Sex Male Smoking Status No Information Chief Complaint And Reason For Visit No Information Reason For Referral Reason For Referral No Information History Of Present Illness Encounter Date Complaint History Of Prese nt Illness No Information Functional Status Date Functional Assessmen t No Information Instructions Date Instruction Additional Infor mation No Information Assessments Type Assessment Date No Information Patient Care Teams Name Effective Dates (start - stop) Status Members No Information
--- OUTSIDE RECORDS SUMMARY | 2025-01-23 09:45 | XMS_ITS | Encounter Summary ---
Author Organization [facility] [employer] [facility] Address [address] [place] [address] Care Team Providers Care Guest Service Host Name Role Phone Homero Stephenson MD Primary Care Provider [phone]- [phone] Encounter Details Date Type Department Care Team (Late Contact Info) Description 01/23/2025 Orders Only [facility] Oncology and Hematology [facility] [address] [place] [id number] Manoj Ugalde MD [facility] [address] [place] [phone] Microcytic anemia (Primary Dx) Social History Tobacco Use Types Packs/Day Years Used Date Smoking Tobacco: Some Days Cigars Alcohol Use Standard Drinks/Week Comments Yes 0 (1 standard drink = 0.6 oz pur e alcohol) Sex and Gender Information Value Date Recorded Sex Assigned at Not on file Legal Sex Male 3:26 PM CDT Gender Identity Not on file Sexual Orientation Not on file documented as of this encounter Plan of Treatment Upcoming Encounters Date Type Department Care Team (Late st Contact Info) Description 01/29/2025 10:00 AM CDT Office Visit [facility] Oncology and Hematology - [place] [address] [place] [address] Manoj Ugalde MD [address] [facility] [address] [place] [id number] Scheduled Orders Name Type Priority Associated Diagnoses Orde r Schedule CBC WITH DIFFERENTIAL Lab Routine Microcytic anemia Expected: 01/23/2025, Expires: 01/23/2026 COMPREHENSIVE METABOLIC PANEL Lab Routine Microcytic anemia Expected: 01/23/2025, Expires: 01/23/2026 IRON, TIBC, AND PERCENT SATURATION Lab Routine Microcytic anemia Expected: 01/23/2025, Expires: 01/23/2026 FERRITIN Lab Routine Microcytic anemia Expected: 01/23/2025, Expires: 01/23/2026 VITAMIN B12 AND FOLATE Lab Routine Microcytic anemia Expected: 01/23/2025, Expires: 01/23/2026 documented as of this encounter Visit Diagnoses Diagnosis Microcytic anemia- Primary Iron deficiency anemia, unspecified documented in this encounter Care Teams Guest Service Host Relationship Specialty Start Date End Date Homero Stephenson MD PCP - General Family Practice 10/13/21 documented as of this encounter
--- OUTSIDE RECORDS SUMMARY | 2025-01-23 09:45 | XMS_ITS | Clinical Summary ---
Author Organization [facility] Address [address] [place] [address] Care Team Providers Care Pad Extractor Tender Name Role Phone Homero Stephenson MD Primary Care Prov ider Manjeet Orantes MD Unavailable Melia Whyte DPT Unavailable [phone] Allergies Active Allergy Reactions Criticality Noted Date Comments Alprazolam Anxiety Low 04/01/2019 Vancomycin Unknown 05/02/2017 Red Man syndrome Medications cholecalciferol (VITAMIN D-3) 5,000 unit tabletIndicatio ns:Prevention of Vitamin D Deficiency Take 1 tablet (5,000 Units total) by mouth every other day Active gabapentin (NEURONTIN) 300 mg capsuleIndicati ons:Neuropathic Pain Take 1 capsule (300 mg total) by mouth 3 (three) times a day Active pantoprazole DR (PROTONIX) 40 mg EC tabletIndicatio ns:Stress Ulcer Prophylaxis,Matheus atment of Non-Bleeding Gastric Disorder Take 1 tablet (40 mg total) by mouth 2 (two) times a day 020 Active oxyCODONE-aceta minophen (PERCOCET) 5-325 mg per tabletIndicatio ns:Pain Take 1 tablet by mouth 3 (three) times a day as needed for pain 022 Active aspirin 81 mg enteric coated tablet Take 1 tablet (81 mg total) by mouth daily 30 tablet 11 022 Active Additional Information Patient taking differently:81 mg oralEvery morning, Indications: prevention of thrombosis, Informant: Self, Reported on 01/14/2025 acetaminophen ER (TYLENOL) 650 mg 8 hr tabletIndicatio ns:Arthritic Pain Take 2 tablets (1,300 mg total) by mouth 2 (two) times a day Active cyanocobalamin (Vitamin B-12) 1,000 mcg tabletIndicatio ns:Prevention of Vitamin B12 Deficiency Take 1 tablet (1,000 mcg total) by mouth every morning 022 Active diclofenac sodium (VOLTAREN) 1 % gelIndications: Osteoarthritis Apply 4 g topically as needed 021 Active dv-mm-facU-asbN e-Vfv-Tsm-hc124 (Airborne, ascorbate sodium,) 334-1.7 mg tablet,chewable Indications:sup plement Take 1 tablet by mouth every morning 020 Active docusate sodium (DOK) 100 mg tabletIndicatio ns:constipation Take 1 tablet (100 mg total) by mouth as needed for constipation 10 tablet 023 Active allopurinoL (ZYLOPRIM) 100 mg tablet Take 1 tablet (100 mg total) by mouth daily Active lisinopriL (PRINIVIL,ZESTR IL) 40 mg tablet Take 1 tablet (40 mg total) by mouth daily 023 Active indapamide (LOZOL) 2.5 mg tablet Take 1 tablet (2.5 mg total) by mouth daily 024 Active fluticasone propionate (FLONASE) 50 mcg/actuation nasal spray Administer 1 spray into each nostril daily Active multivit,tx with iron,minerals (COMPLETE MULTIVITAMIN ORAL) Active rosuvastatin (CRESTOR) 40 mg tablet Take 1 tablet by mouth once daily 90 tablet 3 025 Active icosapent ethyL (VASCEPA) 1 gram capsule Take 2 capsules (2 g total) by mouth 2 (two) times a day 120 capsule 11 025 2025 Active ipratropium (ATROVENT) 42 mcg (0.06 %) nasal sprayIndication s:rhinorrhea Administer 1 spray into each nostril as needed 020 2024 Discontinued(N o longer taking - Do not display on AVS) cetirizine (ZyrTEC) 10 mg capsuleIndicati ons:Allergic Rhinitis Take 1 tablet by mouth as needed 2024 Discontinued(N o longer taking - Do not display on AVS) ascorbic acid (VITAMIN C) 500 mg tablet,chewable Indications:Vit slade C Deficiency Take 1 tablet/chew tab (500 mg total) by mouth daily after lunch 2024 Discontinued ferrous sulfate 325 mg (65 mg of elemental iron) tabletIndicatio ns:Iron Deficiency Anemia Take 65 mg of elemental iron by mouth daily with breakfast 022 2024 Discontinued(N o longer taking - Do not display on AVS) ketoconazole (NIZORAL) 2 % cream ketoconazole 2 % topical cream APPLY TO LEFT GREAT TOENAIL ONCE DAILY 2024 Discontinued(N o longer taking - Do not display on AVS) NIFEdipine (NIFEdipine CC) 30 mg 24 hr tablet Take 1 tablet (30 mg total) by mouth daily 30 tablet 11 023 2024 Discontinued(N o longer taking - Do not display on AVS) oxyCODONE (ROXICODONE) 5 mg immediate release tablet oxycodone 5 mg tablet Take 1 tablet as needed by oral route. 022 2024 Discontinued(N o longer taking - Do not display on AVS) mupirocin (BACTROBAN) 2 % ointment APPLY OINTMENT TOPICALLY TWICE DAILY 024 2024 Discontinued(N o longer taking - Do not display on AVS) rosuvastatin (CRESTOR) 40 mg tablet Take 1 tablet (40 mg total) by mouth daily 90 tablet 025 2024 Discontinued Active Problems Problem Noted Date Diagnosed Date [...] (03/18/2019): Added automatically from request for surgery [id number] Hypertension 02/11/2019 Hyperlipemia 02/11/2019 Pseudoarthrosis of lumbar spine 12/30/2018 Overview (12/30/2018): Added automatically from request for surgery [id number] Adjacent segment disease with spinal stenosis Overview (12/30/2018): Added automatically from request for surgery [id number] Lumbar radiculopathy 12/30/2018 Overview (12/30/2018): Added automatically from request for surgery [id number] Hx of spinal fusion 12/30/2018 Overview (12/30/2018): Added automatically from request for surgery [id number] Intervertebral disc disorder with radiculopathy of lumbar region 03/26/2018 Overview (03/26/2018): S/p L2 to L5 durham/PSF. Assessment & Plan (03/26/2018 4:43 PM TESTER ELECTRONIC SCALE): Mr. Stephen has new symptoms of S1 [...] Sandoval procedure.. Dizziness Acid indigestion Anxiety Arthritis Encounters Date Type Department Care Team Description 01/14/2025 8:30 AM CDT Office Visit [facility] Card[facility] [address] [place] [address] Manjeet Orantes MD Essential hypertension (Primary Dx); History of TIA (transient ischemic attack); Hypertriglyceridemia from Last 3 Months Immunizations Immunization Administration Dates Next Due Influenza, [...] - 04/22/1990 COLON POLYPECTOMY 04/23/2020 - 04/22/2021 ABDOMINAL SURGERY drain Psoas fluid CATARACT EXTRACTION 01/2024 Medical History Medical History Date Comments Hypertension Dizziness Hyperlipidemia Acid indigestion Anxiety Arthritis Fractures PONV (postoperative nausea a nd vomiting) Diverticulosis GERD (gastroesophageal reflu x disease) TIA (transient ischemic attack) Clotting disorder Bleeds easy last 10 years Hard to intubate 04/08/2019 Factors contrib uting to ventilation difficulty: tongue size, limited mouth opening, limited neck motion and limited respiratory reserve Former smoker Hyperparathyroidism Cataract had cataracts remove d 2023 in both eyes Anemia Microcytic Anemia --2021 Thyroid disease Had two parathyroids removed May 2022 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 Peptic ulceration 2019 Family History Medical History Relation Name Comments Hypertension Brother 1 Raymundo Arth Hypertension Brother 2 Colin Arth Hypertension Brother 3 Raymundo Arth Hypertension Brother 4 Colin Arth Alzheimer's disease Father Patrick Arth Arthritis Father Patrick Arth Depression Father Patrick Arth Hearing loss Father Patrick Arth Heart attack Father Patrick Arth Hypertension Father Patrick Arth Leukemia Father Patrick Arth Stroke Father Patrick Arth Heart attack Maternal Grandfather Erlin Arzolaalb Alzheimer's disease Mother Aisha Arth Arthritis Mother Aisha Arth Breast cancer Mother Aisha Arth Cancer Mother Aisha Arth Diabetes Mother Aisha Arth Hearing loss Mother Aisha Arth Hypertension Mother Aisha Arth Parkinsonism Mother Aisha Arth Heart attack Paternal Grandfather Edrich Arth Stroke Paternal Grandfather Edrich Arth Diabetes Son 1 David Arth Hypertension Son 1 David Arth Diabetes Son 2 David Arh Hypertension Son 3 David Arth Relation Name Status Comments Brother 1 Raymundo Arth Brother 2 Colin Arth Brother 3 Raymundo Arth Alive Brother 4 Colin Arth Alive Father Patrick Arth Maternal Grandfather Erlin Schwalb Mother Aisha Arth Alive Paternal Grandfather Edward Arth Son 1 David Arth Son 2 David Arh Alive Son 3 David Arth Alive Social History Tobacco Use Types Packs/Day Years Used Date Smoking Tobacco: Passive Smo ke Exposure - Never Smoker Cigarettes 1 58.8 Started: 04/23/1966 Cigars Passive Smoke Exposure: Never Smokeless Tobacco: Never Tobacco Cessation:Counseling Given: Not Answered Comments:No longer smoke cigarettes/ quit in 1997. 2019 started small cigars, 3/week Alcohol Use Standard Drinks/Week Comments Yes 4 [...] on file Legal Sex Male 10:27 AM TESTER ELECTRONIC SCALE Gender Identity Not on file Sexual Orientation Straight 07/25/2018 10 :48 AM CDT Obstetrics History Last Filed Vital Signs Vital Sign Reading Time Taken Comments Blood Pressure 124/70 01/14/2025 8:14 AM CDT Pulse 71 01/14/2025 8:14 AM CDT Temperature 36.2 C (97.1 F) 07/03/2022 9:15 AM CDT Respiratory Rate 16 07/03/2022 10:45 AM CDT Oxygen Saturation 96% 01/14/2025 8:14 AM CDT Inhaled Oxygen Concentration - - Weight 92.1 kg (203 lb) 01/14/2025 8:14 AM CDT Height 172.7 cm (5' 8) 01/14/2025 8:14 AM CDT Body Mass Index 30.87 01/14/2025 8:14 AM CDT Plan of Treatment Upcoming Encounters Date Type Department Care Team (Latest Contact Info) Description 02/04/2025 10:00 AM CDT Hospital Encounter [facility] [address] [place] [address] [phone] Channing Nagel MD [address] [address] 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) 02/04/2025 10:00 AM CDT - 02/04/2025 10:30 AM CDT Surgery [facility] [address] [place] [address] [phone] Channing Nagel MD [address] [address] [facility] Health Maintenance Due Date Last Done Comments Colon Cancer Screening-Colonoscopy 1950 Depression Screening 1950 Hepatitis B Screening 1969 Zoster Vaccine (1 of 2) 2001 Abdominal Aortic Aneurysm (A AA) Screen 2016 Well Visit 65+ 2016 Fall Risk Assessment 07/04/2023 07/03/2022 Covid-19 Vaccine ( season) 2024 02/14/2021, 07/03/2020, 06/05/2020 Influenza Vaccine (#1) 2024 , 01/06/2020, 01/21/2019 DTaP/Tdap/Td Vaccine (2 - Td or Tdap) 11/12/2029 Hepatitis C Screening Completed 06/14/2011 Pneumococcal vaccine 65+ Completed 018, 01/24/2018, 01/15/2017 Medical Devices Implanted Type Area Lsat Instructor Device Identifier Shelf Expiration Date Model / Serial / Lot [employer]uity [employer] Inc [id number] - [id number] - [id number] Implanted:Qty: 1 on 02/11/2019 by Earl Shabazz MD at [facility] [employer] 01/17/2024 [id number] / [id number] / Medtronic Sofamor Danek [id number] Cd Horizon Break Off Spinal Screw Set Titanium Nonsterile 5.5 Mm - [id number] Implanted:Qty: 10 on 02/11/2019 by Earl Shabazz MD at [facility] Medtronic Inc [id number] / / Medtronic Sofamor Danek [id number] 5.5mm 120mm Curve Abdulkadir Spinal Titanium Nonsterile - [id number] Implanted:Qty: 1 on 02/11/2019 by Earl Shabazz MD at [facility] Med[employer]onic Inc [id number] / / Medtronic Sofamor Danek [id number] Cd Horizon 5.5mm 500mm Line Straight Abdulkadir Spinal Titanium - [id number] Implanted:Qty: 1 on 02/11/2019 by Earl Shabazz MD at [facility] Med[employer]onic Inc [id number] / / Medtronic Inc [id number] Cd Horizon 5/6-6mm Top Spinal Lateral 70mm Connector Abdulkadir - [id number] Implanted:Qty: 1 on 02/11/2019 by Earl Shabazz MD at [facility] [employer] Inc [id number] / / Medtronic Sofamor Danek [id number] Infuse 18mm 26mm Absorbable Sponge Sterile Water Syringe Needle - [id number] Implanted:Qty: 1 on 02/11/2019 by Earl Shabazz MD at [facility] [employer] Inc 11/21/2019 [id number] / / [id number] Medtronic Sofamor Danek [id number] Mastergraft Matrix Block Extension Void Filler Substitute 10ml - [id number] Implanted:Qty: 1 on 02/11/2019 by Earl Shabazz MD at [facility] Med[employer]onic Inc [id number] 08/20/2021 [id number] / / [id number] Medtronic Inc [id number] Artic-L L25 Mm X W12 Mm X H9 Mm 5 D Spacer Spinal Titanium - [id number] Implanted:Qty: 1 on 02/11/2019 by Earl Shabazz MD at [facility] Med[employer]onic Inc 01/05/2025 [id number] / / Medtronic Sofamor Danek [id number] Solera Cd Horizon 7.5mm 50mm Multiaxial Spine Screw Bone Cocr - [id number] Implanted:Qty: 5 on 02/11/2019 by Earl Shabazz MD at [facility] Medtronic Inc [id number] / / Medtronic Sofamor Danek [id number] Solera Cd Horizon 7.5mm 55mm Multiaxial Spine Screw Bone Cocr - [id number] Implanted:Qty: 1 on 02/11/2019 by Earl Shabazz MD at [facility] Medtronic Inc [id number] / / Medtronic Sofamor Danek [id number] Solera Cd Horizon 7.5mm 60mm Multiaxial Spine Screw Bone Cocr - [id number] Implanted:Qty: 1 on 02/11/2019 by Earl Shabazz MD at [facility] Med[employer]onic Inc [id number] / / Medtronic Sofamor Danek [id number] 7.5mm 65mm Multiaxial Spine Screw Bone Cocr 5.5mm Abdulkadir - [id number] Implanted:Qty: 1 on 02/11/2019 by Earl Shabazz MD at [facility] Medtronic Inc [id number] / / Medtronic Inc [id number] 8.5mm 80mm Multiaxial Cannulated Thoracolumbar Screw Bone - [id number] Implanted:Qty: 1 on 02/11/2019 by Earl Shabazz MD at [facility] Medtronic Inc [id number] / / Integra aCommerceciExo Lisa [id number] Duragen Plus 2x2in Patch Resorbable Suturable Cranial Dura Graft - [id number] Implanted:Qty: 1 on 02/13/2019 by Earl Shabazz MD at [facility] Integra [employer]CommerceciExo Lisa 12/21/2021 [id number] / / Medtronic Sofamor Danek [id number] Mastergraft Matrix Block Extension Void Filler Substitute 10ml - [id number] Implanted:Qty: 1 on 04/08/2019 by Earl Shabazz MD at [facility] N/A: Spine Lumbar Medtronic Inc 12/21/2021 [id number] / / [id number] Medtronic Sofamor Danek [id number] Infuse 18mm 26mm Absorbable Sponge Sterile Water Syringe Needle - [id number] Implanted:Qty: 1 on 04/08/2019 by Earl Shabazz MD at [facility] N/A: Spine Lumbar Medtronic Inc 08/21/2020 [id number] / / [id number] Acuity [employer] Inc [id number] - [id number] - [id number] Implanted:Qty: 1 on 04/08/2019 by Earl Shabazz MD at [facility] N/A: Spine Lumbar [employer] Inc 03/13/2024 [id number] / [id number] / Medtronic Sofamor Danek [id number] Solera Cd Horizon 5.5mm 45mm Multiaxial Spine Screw Bone Cocr - [id number] Implanted:Qty: 1 on 04/08/2019 by Earl Shabazz MD at [facility] Medtronic Inc [id number] / / Medtronic Sofamor Danek [id number] Solera Cd Horizon 5.5mm 40mm Multiaxial Spine Screw Bone Cocr - [id number] Implanted:Qty: 4 on 04/08/2019 by Earl Shabazz MD at [facility] Medtronic Inc [id number] / / Medtronic Inc [id number] 8.5mm 90mm Multiaxial Cannulated Thoracolumbar Screw Bone - [id number] Implanted:Qty: 1 on 04/08/2019 by Earl Shabazz MD at [facility] Medtronic Inc [id number] / / Medtronic Inc [id number] Longitude Ii 5.5mm 500mm Straight Abdulkadir Spinal Cocr Molybdenum - [id number] Implanted:Qty: 2 on 04/08/2019 by Earl Shabazz MD at [facility] Medtronic Inc [id number] / / Medtronic Sofamor Danek [id number] Cd Horizon Break Off Spinal Screw Set Titanium Nonsterile 5.5 Mm - [id number] Implanted:Qty: 13 on 04/08/2019 by Earl Shabazz MD at [facility] Medtronic Inc [id number] / / Teleflex Medical Inc Weck Horizon Ligate Triangulate Cross Section Wire Small Wide Latex Free [id number] - [id number] Implanted:Qty: 1 on 05/30/2022 by Nicolasa Wren MD at [facility] N/A: Neck Teleflex Medical Inc 11/13/2026 [id number] / / [id number] Teleflex Medical Inc Weck Horizon 6 Cartridge Ligate Triangulate Cross Section Heart [id number] - [id number] Implanted:Qty: 1 on 05/30/2022 by Nicolasa Wren MD at [facility] N/A: Neck [employer] Inc [id number] 02/07/2027 [id number] / / [id number] Procedures Procedure Name Priority Date/Time Associated Diagnosis Comments POCT LIPID PANEL Routine 01/14/2025 8:07 AM CDT Hypertriglyceridemia from Last 3 Months Results * (ABNORMAL) POCT lipid panel (01/14/2025 8:07 AM CDT) Cholesterol, POC 159 <200 MG/DL HDL, POC 28(A) >=40 mg/dL Triglycerides, POC 415(A) <=149 mg/dL LDL Cholesterol POC 48 <=129 mg/dL Non-HDL Cholesterol, POC 131 NONE mg/dL Cholesterol Total, POC 159 30 - 199 mg/dL Capillary blood 01/14/2025 8 :07 AM CDT Manjeet Orantes MD POINT OF CARE TEST ORDERABLES Fi nal Result from Last [address] [facility] MEDICARE [facility] MEDICARE [place] [address] MEDICARE Advance Directives For more information, please contact: [phone] * Full Code (Latest Code Status on [...] 3:18 PM 04/18/2019 10:17 PM Care Teams Pad Extractor Tender Relationship Specialty Start Date End Date Homero Stephenson MD PCP - General 07/03/16 Manjeet Orantes MD [address] [place] [address] Education Courses Sales Representative Cardiology 01/06/19 Melia Whyte DPT [address] [place] [address] Physical Therapist Physical Therapy 03/27/24
--- OUTSIDE RECORDS SUMMARY | 2025-01-23 09:45 | XMS_ITS | Clinical Summary ---
Author Organization [facility] Address [address] [place] [address] Care Team Providers Care Rn Lab Name Role Phone Homero Stephenson MD Primary Care Provider [phone]- [phone] Allergies Active Allergy Reactions Criticality Noted Date [...] 2 Active fluticasone propionate (FLONASE) 50 mcg/spray [place], Suspension nasal inhaler Administer 1 [place] in each nostril daily. Active indapamide (LOZOL) 2.5 mg tablet Take 2.5 mg by mouth daily. 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 Microcytic anemia 10/13/2021 Encounters Date Type Department Care Team Description 01/23/2025 Orders Only [facility] Oncology and Hematology - [place] [address] [address] [place] [phone] Manoj Ugalde MD Microcytic anemia (Primary Dx) 01/06/2025 External Device Data STL ABSTRACTION Provider, Abstract 12/09/2024 External Device Data STL ABSTRACTION Provider, Abstract 11/25/2024 External Device Data STL ABSTRACTION Provider, Abstract [...] Description 01/29/2025 10:00 AM CDT Office Visit [facility] Oncology and Hematology - [place] [address] [place] [address] Manoj Ugalde MD [address] [facility] [place] [phone] Health Maintenance Due Date Last Done Comments DTAP/TDAP/TD VACCINES (1 - Tdap) 1970 PNEUMOCOCCAL VACCINE 50+ YEA RS (1 of 2 - PCV) 1970 FIT-DNA Q 3 years 1996 FIT/FOBT Q 1 year 1996 Flex Sig/CT Colonography Q 5 years 1996 ZOSTER VACCINE (1 of 2) 2001 Abdominal Aortic Aneurysm (A AA) Screening 2016 INFLUENZA VACCINE (#1) 2024 RSV VACCINE (60+ or ) (1 - 1-dose 75+ series) 2026 COLORECTAL SCREENING 05/14/2030 05/14/2020, 05/14/2020, 10/09/2018 Colorectal Cancer Screening 05/14/2030 Insurance [facility] MEDICARE PART A AND B Care Teams Rn Lab Relationship Specialty Start Date End Date Homero Stephenson MD PCP - General Family Practice 10/13/21
[2025-01-23 09:55] LABS: Hematocrit 48.0 % (42.0-52.0); Hemoglobin 15.4 g/dL (14.0-18.0); Immature Granulocyte Percent A 0.3 % (0-0.5); Lymphocytes Absolute Auto 1.22 K/mm3 (0.9-3.2); Mean Corpuscular HGB Conc 32.1 g/dl (32-36); Mean Corpuscular Hemoglobin 27.8 pg (26-34); Mean Corpuscular Volume 86.6 fl (80-100); Nucleated Red Blood Cells Absolute Auto 0.000 K/mm3 (0.0-0.012); Nucleated Red Blood Cells Perc 0.0 % (0.0-0.2); Platelet Count Result 203 k/mm3 (150-375); Red Blood Count 5.54 M/mm3 (4.6-6.20); White Blood Count 6.0 K/mm3 (4.5-10.0)
[2025-01-23 13:51] LABS: Alanine Aminotransferase 27 U/L (6-50); Albumin Level 4.3 g/dL (3.5-5.1); Alkaline Phosphatase 72 U/L (38-126); Anion Gap 8 mmol/L (4-12); Aspartate Amino Transferase 44 U/L (17-59); Bilirubin,Total 0.5 mg/dL (0.2-1.3); Blood Urea Nitrogen 25 mg/dL (9-20); Calcium 9.3 mg/dL (8.4-10.2); Carbon Dioxide 26 mmol/L (22-30); Chloride 104 mmol/L (98-107); Estimated Glomerular Filt Rate 59; Glucose 115 mg/dL (65-110); Potassium 3.8 mmol/L (3.4-5.0); Sodium 138 mmol/L (137-145); Total Protein 7.6 g/dL (6.3-8.2)
[2025-01-23 13:55] LABS: Iron 60 ug/dL (49-181)
[2025-01-23 14:21] LABS: Percent Iron Saturation 16 % (20-50)
[2025-01-23 14:38] LABS: Ferritin 15.40 ng/mL (11.1-264)
[2025-01-23 15:55] LABS: Vitamin B12 818.0 pg/mL (239-931)
== END 2025-01-23 09:39 | disposition home or self-care (01) ==
LOC: ANHLAB 09:39
PROVIDERS: PCP Family Medicine Adolescent Medicine; Visit Provider Internal Medicine Hematology & Oncology
DX: D50.9 Iron deficiency anemia, unspecified (principal)
CPT/HCPCS: 36415; 80053; 82607; 82728; 82746; 83540; 83550; 85025

== ENCOUNTER 2025-01-23 13:37 | Outpatient (CLI) | payer MEDICARE, OTHER, SELFPAY ==
--- NOTE | ~2025-01-23 | CT_ITS ---
EXAMINATION: CT sinus wo con COMPARISON: None HISTORY: J30.0 - Vasomotor rhinitis TECHNIQUE: Axial images were obtained without IV contrast. Sagittal, coronal reconstruction images were obtained from the axial views. CT scan performed using dose optimization techniques including the following automated exposure control; adjustment of mA and/or kV; use of iterative reconstruction technique. Automatic exposure control was used to reduce radiation dose. Permanent radiation dose record is archived to PACS. FINDINGS: Nasal bones unremarkable. Anterior maxillary sinus sen, zygomatic arches and temporomandibular joints unremarkable. Orbital floors and medial and orbits unremarkable. Visualized brain parenchyma and orbits appear unremarkable. Frontal sinus is unremarkable. Moderate mucosal thickening within the ethmoidal air cells of the right maxillary sinus. Minimal mucosal thickening left maxillary sinus. The ostiomeatal complex on the right is obstructed. The ostiomeatal complex on the left is 80 patent. Nasal septum deviated to the left with thickening of the turbinates and narrowing of the nasal cavities bilaterally especially on the left. Sphenoid sinus is unremarkable. No osseous destruction or wall thickening identified. IMPRESSION: Sinusitis detailed above Reviewed, dictated and finalized at location P. IMPRESSION: Sinusitis detailed above
--- OUTSIDE RECORDS SUMMARY | 2025-01-23 13:40 | XMS_ITS | Encounter Summary ---
Author Organization [facility] [employer] [facility] Address [address] [place] [address] Care Team Providers Care Teacher Hearing Impaired Name Role Phone Homero Stephenson MD Primary Care Provider [phone]- [phone] Encounter Details Date Type Department Care Team (Late Contact Info) Description 01/23/2025 Orders Only [facility] Oncology and Hematology [facility] [address] [place] [id number] Manoj Ugalde MD [facility] [employer] [address] [place] [phone] Microcytic anemia (Primary Dx) Social History [...] Description 01/29/2025 10:00 AM CDT Office Visit [facility] Oncology and Hematology - [place] [address] [place] [address] Manoj Ugalde MD [address] [employer] [address] [place] [phone] Scheduled Orders Name Type Priority Associated [...] unspecified documented in this encounter Care Teams Teacher Hearing Impaired Relationship Specialty Start Date End Date Homero Stephenson MD PCP - General Family Practice 10/13/21 documented as of this encounter
--- OUTSIDE RECORDS SUMMARY | 2025-01-23 13:40 | XMS_ITS | Clinical Summary ---
Author Organization [facility] Address [address] [place] [address] Care Team Providers Care Letter Of Credit Document Examiner Name Role Phone Homero Stephenson MD Primary Care Prov ider Manjeet Orantes MD Unavailable Melia Whyte DPT Unavailable [phone] Allergies Active Allergy Reactions Criticality Noted Date [...] 4 g topically as needed 021 Active zu-ww-niyH-asbN [id number]-[id number]-Itl-hc124 (Airborne, ascorbate sodium,) 334-1.7 mg tablet,chewable Indications:sup [...] (03/18/2019): Added automatically from request for surgery [id number] Hypertension 02/11/2019 Hyperlipemia 02/11/2019 Pseudoarthrosis of lumbar spine 12/30/2018 Overview (12/30/2018): Added automatically from request for surgery [id number] Adjacent segment disease with spinal stenosis Overview (12/30/2018): Added automatically from request for surgery [id number] Lumbar radiculopathy 12/30/2018 Overview (12/30/2018): Added automatically from request for surgery [id number] Hx of spinal fusion 12/30/2018 Overview (12/30/2018): Added automatically from request for surgery [id number] Intervertebral disc disorder with radiculopathy of lumbar region 03/26/2018 Overview (03/26/2018): S/p L2 to L5 durham/PSF. 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) 02/04/2025 10:00 AM CDT - 02/04/2025 10:30 AM CDT Surgery [facility] [address] [place] [phone] Channing Nagel MD [address] [address] [facility] Health Maintenance Due Date Last Done [...] 01/24/2018, 01/15/2017 Medical Devices Implanted Type Area Profiling Machine Setup Operator Device Identifier Shelf Expiration Date Model / Serial / Lot Acuity [employer] Inc [id number] - [id number] - [id number] Implanted:Qty: 1 on 02/11/2019 by Earl Shabazz MD at [facility] [employer] Inc 01/17/2024 [id number] / [id number] / Medtronic Sofamor Danek [id number] Cd Horizon Break Off Spinal Screw Set Titanium Nonsterile 5.5 Mm - [id number] Implanted:Qty: 10 on 02/11/2019 by Earl Shabazz MD at [facility] Medtronic Inc [id number] / / Medtronic Sofamor Danek [id number] 5.5mm 120mm Curve Abdulkadir Spinal Titanium Nonsterile - [id number] Implanted:Qty: 1 on 02/11/2019 by Earl Shabazz MD at [facility] Medtronic Inc [id number] / / Medtronic Sofamor Danek [id number] Cd Horizon 5.5mm 500mm Line Straight Abdulkadir Spinal Titanium - [id number] Implanted:Qty: 1 on 02/11/2019 by Earl Shabazz MD at [facility] Medtronic Inc [id number] / / Medtronic Inc [id number] Cd Horizon 5/6-6mm Top Spinal Lateral 70mm Connector Abdulkadir - [id number] Implanted:Qty: 1 on 02/11/2019 by Earl Shabazz MD at [facility] Med[employer]onic Inc [id number] / / Medtronic Sofamor Danek [id number] Infuse 18mm 26mm Absorbable Sponge Sterile Water Syringe Needle - [id number] Implanted:Qty: 1 on 02/11/2019 by Earl Shabazz MD at [facility] [employer]onic Inc 11/21/2019 [id number] / / [id number] Medtronic Sofamor Danek [id number] Mastergraft Matrix Block Extension Void Filler Substitute 10ml - [id number] Implanted:Qty: 1 on 02/11/2019 by Earl Shabzaz MD at [facility] Med[employer]onic Inc [id number] 08/20/2021 [id number] / / [id number] Medtronic Inc [id number] Artic-L L25 Mm X W12 Mm X H9 Mm 5 D Spacer Spinal Titanium - [id number] Implanted:Qty: 1 on 02/11/2019 by Earl Shabazz MD at [facility] Med[employer]onic Inc 01/05/2025 [id number] / / Medtronic Sofamor Danek [id number] Solera Cd Horizon 7.5mm 50mm Multiaxial Spine Screw Bone Cocr - [id number] Implanted:Qty: 5 on 02/11/2019 by Earl Shabazz MD at [facility] Medtronic Inc [id number] / / Medtronic Sofamor Danek [id number] Solera Cd Horizon 7.5mm 55mm Multiaxial Spine Screw Bone Cocr - [id number] Implanted:Qty: 1 on 02/11/2019 by Earl Shabazz MD at [facility] Medtronic Inc [id number] / / Medtronic Sofamor Danek [id number] Solera Cd Horizon 7.5mm 60mm Multiaxial Spine Screw Bone Cocr - [id number] Implanted:Qty: 1 on 02/11/2019 by Earl Shabazz MD at [facility] Medtronic Inc [id number] / / Medtronic Sofamor Danek [id number] 7.5mm 65mm Multiaxial Spine Screw Bone Cocr 5.5mm Abdulkadir - [id number] Implanted:Qty: 1 on 02/11/2019 by Earl Shabazz MD at [facility] Medtronic Inc [id number] / / Medtronic Inc [id number] 8.5mm 80mm Multiaxial Cannulated Thoracolumbar Screw Bone - [id number] Implanted:Qty: 1 on 02/11/2019 by Earl Shabazz MD at [facility] Medtronic Inc [id number] / / Integra AlfalightciNoquo Lisa [id number] Duragen Plus 2x2in Patch Resorbable Suturable Cranial Dura Graft - [id number] Implanted:Qty: 1 on 02/13/2019 by Earl Shabazz MD at [facility] Integra AlfalightciNoquo Lisa 12/21/2021 [id number] / / Medtronic Sofamor Danek [id number] Mastergraft Matrix Block Extension Void Filler Substitute 10ml - [id number] Implanted:Qty: 1 on 04/08/2019 by Earl Shabazz MD at [facility] N/A: Spine Lumbar Medtronic Inc 12/21/2021 [id number] / / [id number] Medtronic Sofamor Danek [id number] Infuse 18mm 26mm Absorbable Sponge Sterile Water Syringe Needle - [id number] Implanted:Qty: 1 on 04/08/2019 by Earl Shabazz MD at [facility] N/A: Spine Lumbar Medtronic Inc 08/21/2020 [id number] / / [id number] Acuity [employer] Inc [id number] - [id number] - [id number] Implanted:Qty: 1 on 04/08/2019 by Earl Shabazz MD at [facility] N/A: Spine Lumbar [employer]uity [employer] Inc 03/13/2024 [id number] / [id number] / Medtronic Sofamor Danek [id number] Solera Cd Horizon 5.5mm 45mm Multiaxial Spine Screw Bone Cocr - [id number] Implanted:Qty: 1 on 04/08/2019 by Earl hSabazz MD at [facility] Medtronic Inc [id number] / / Medtronic Sofamor Danek [id number] Solera Cd Horizon 5.5mm 40mm Multiaxial Spine Screw Bone Cocr - [id number] Implanted:Qty: 4 on 04/08/2019 by Earl Shabazz MD at [facility] Medtronic Inc [id number] / / Medtronic Inc [id number] 8.5mm 90mm Multiaxial Cannulated Thoracolumbar Screw Bone - [id number] Implanted:Qty: 1 on 04/08/2019 by Earl Shabazz MD at [facility] Medtronic Inc [id number] / / Medtronic Inc [id number] Longitude Ii 5.5mm 500mm Straight Abdulkadir Spinal Cocr Molybdenum - [id number] Implanted:Qty: 2 on 04/08/2019 by Earl Shabazz MD at [facility] Medtronic Inc [id number] / / Medtronic Sofamor Danek [id number] Cd Horizon Break Off Spinal Screw Set Titanium Nonsterile 5.5 Mm - [id number] Implanted:Qty: 13 on 04/08/2019 by Earl Shabazz MD at [facility] Medtronic Inc [id number] / / Teleflex Medical Inc Weck Horizon Ligate Triangulate Cross Section Wire Small Wide Latex Free [id number] - [id number] Implanted:Qty: 1 on 05/30/2022 by Nicolasa Wren MD at [facility] N/A: Neck Teleflex Medical Inc 11/13/2026 [id number] / / [id number] Teleflex Medical Inc Weck Horizon 6 Cartridge Ligate Triangulate Cross Section Heart [id number] - [id number] Implanted:Qty: 1 on 05/30/2022 by Nicolasa Wren MD at [facility] N/A: Neck [employer] Inc [id number] 02/07/2027 [id number] / / [id number] Procedures Procedure Name Priority Date/Time Associated Diagnosis [...] nal Result from Last 3 Months Insurance [facility] MEDICARE [facility] MEDICARE [place] [address] MEDICARE Advance Directives For more information, please contact: [phone] * Full Code (Latest Code Status on [...] 3:18 PM 04/18/2019 10:17 PM Care Teams Letter Of Credit Document Examiner Relationship Specialty Start Date End Date Homero Stephenson MD PCP - General 07/03/16 Manjeet Orantes MD [address] [place] [address] Application Packaging Consultant Cardiology 01/06/19 Melia Whyte DPT [address] [place] [address] Physical Therapist Physical Therapy 03/27/24
--- OUTSIDE RECORDS SUMMARY | 2025-01-23 13:40 | XMS_ITS | Clinical Summary ---
Author Organization [facility] natarajan [facility] Address [address] [place] [address] Care Team Providers Care E Business Specialist Name Role Phone Homero Stephenson MD Primary Care Provider [phone]- [phone] Allergies Active Allergy Reactions Criticality Noted Date [...] 2 Active fluticasone propionate (FLONASE) 50 mcg/spray Butler, Suspension nasal inhaler Administer 1 Butler in each nostril daily. Active indapamide (LOZOL) 2.5 mg tablet Take 2.5 mg by mouth daily. 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 Microcytic anemia 10/13/2021 Encounters Date Type Department Care Team Description 01/23/2025 Orders Only [facility] - [place] [address] [address] [place] [phone] Manoj Ugalde MD Microcytic anemia (Primary [...] Description 01/29/2025 10:00 AM CDT Office Visit [facility] - [place] [address] [place] [address] Manoj Ugalde MD [address] [place] [phone] Health Maintenance Due Date Last Done Comments [...] 05/14/2020, 10/09/2018 Colorectal Cancer Screening 05/14/2030 Insurance [facility] MEDICARE PART A AND B Care Teams E Business Specialist Relationship Specialty Start Date End Date Homero Stephenson MD PCP - General Family Practice 10/13/21
== END 2025-01-23 13:38 | disposition home or self-care (01) ==
PROVIDERS: PCP Family Medicine Adolescent Medicine; Visit Provider Otolaryngology
DX: J31.0 Chronic rhinitis (principal); J34.3 Hypertrophy of nasal turbinates; J34.2 Deviated nasal septum
CPT/HCPCS: 70486

== ENCOUNTER 2025-02-13 10:22 | Outpatient (CLI) | payer MEDICARE, OTHER, SELFPAY ==
--- NOTE | 2025-02-13 10:31 | ECG_ITS ---
Test Date: 2025-02-13 11:00:36 Measurements Intervals [place] Rate: 69 P: 31 SC: 188 QRS: -31 QRSD: 118 T: 5 QT: 396 QTc: 425 Interpretive Statements SINUS RHYTHM LEFT AXIS DEVIATION INTRAVENTRICULAR CONDUCTION DELAY VOLTAGE CRITERIA FOR LVH BASELINE ARTIFACT- I, II, III, AVR, AVL, AVF BORDERLINE ECG No previous ECG available for comparison Electronically Signed On 02-13-2025 11:27:25 CDT by Unruly Al D.O.
--- OUTSIDE RECORDS SUMMARY | 2025-02-13 10:51 | XMS_ITS | Clinical Summary ---
Author Organization [facility] Address [address] [place] [address] Care Team Providers Care Jig Hand Name Role Phone Homero Stephenson MD Primary Care Prov ider Manjeet Orantes MD Unavailable Melia Whyte DPT Unavailable [phone] Allergies Active Allergy Reactions Criticality Noted Date [...] by mouth 2 (two) times a day 03/23/20 20 Active aspirin 81 mg enteric coated tablet Take 1 tablet (81 mg total) by mouth daily 30 tablet 11 09/22/19 22 Active Additional Information Patient taking differently:81 mg oral Daily,Indications: prevention of thrombosis, Informant: Self, Reported on 02/04/2025 acetaminophen ER (TYLENOL) 650 mg 8 hr tabletIndication s:Arthritic Pain Take 2 tablets (1,300 mg total) by mouth 2 (two) times a day 05/28/19 21 Active cyanocobalamin (Vitamin B-12) 1,000 mcg tabletIndication s:Prevention of Vitamin B12 Deficiency Take 1 tablet (1,000 mcg total) by mouth every morning 11/04/19 22 Active diclofenac sodium (VOLTAREN) 1 % gelIndications:O steoarthritis Apply 4 g topically as needed 04/23/19 21 Active mx-xh-ikuX-asbNa -Brc-Zlp-ty118 (Airborne, ascorbate sodium,) 334-1.7 mg tablet,chewableI ndications:suppl ement Take 1 tablet by mouth every morning 04/23/19 20 Active docusate sodium (DOK) 100 mg tabletIndication s:constipation Take 1 tablet (100 mg total) by mouth as needed for constipation 10 tablet 07/04/19 23 Active allopurinoL (ZYLOPRIM) 100 mg tablet Take 1 tablet (100 mg total) by mouth daily Active lisinopriL (PRINIVIL,ZESTRI L) 40 mg tablet Take 1 tablet (40 mg total) by mouth daily 12/24/19 23 Active indapamide (LOZOL) 2.5 mg tablet Take 1 tablet (2.5 mg total) by mouth daily 07/27/19 24 Active fluticasone propionate (FLONASE) 50 mcg/actuation nasal spray Administer 1 spray into each nostril daily Active multivit,tx with iron,minerals (COMPLETE MULTIVITAMIN ORAL) Active rosuvastatin (CRESTOR) 40 mg tablet Take 1 tablet by mouth once daily 90 tablet 3 12/27/19 25 Active icosapent ethyL (VASCEPA) 1 gram capsule Take 2 capsules (2 g total) by mouth 2 (two) times a day 120 capsule 11 01/15/20 25 026 Active oxyCODONE-acetam inophen (PERCOCET) 5-325 mg per tabletIndication s:Pain Take 1 tablet by mouth 3 (three) times a day as needed for pain 07/09/19 22 025 Discontin ued(Stop Taking at Discharge ) Active Problems Problem Noted Date Diagnosed Date Pain of toe of left foot 11/26/2023 Tear of lateral meniscus of right knee 3 Pigmented skin lesion 09/11/2022 Arthralgia of right knee 09/08/2022 Dystrophia unguium 06/25/2022 Hyperparathyroidism 05/03/2022 Overview (06/01/2022): PROCEDURE PERFORMED (05/30/22, [facility]) Parathyroidectomy. 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 Microcytic anemia 10/13/2021 Lordosis of lumbar region 03/18/2019 Overview (03/18/2019): Added automatically from request for surgery [id number] Hypertension 02/11/2019 Hyperlipemia 02/11/2019 Pseudoarthrosis of lumbar spine 12/30/2018 Overview (12/30/2018): Added automatically from request for surgery [id number] Adjacent segment disease with spinal stenosis Overview (12/30/2018): Added automatically from request for surgery [id number] Lumbar radiculopathy 12/30/2018 Overview (12/30/2018): Added automatically from request for surgery [id number] Hx of spinal fusion 12/30/2018 Overview (12/30/2018): Added automatically from request for surgery [id number] Intervertebral disc disorder with radiculopathy of lumbar region 03/26/2018 Overview (03/26/2018): S/p L2 to L5 [place]/PSF. 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 Stephen has new symptoms of S1 [...] Encounters Date Type Department Care Team Description 02/04/2025 10:00 AM CDT - 02/04/2025 10:30 AM CDT Surgery [facility] [address] [place] [phone] Channing Nagel MD ESOPHAGOGASTRODUODENOSCOPY ULTRASOUND EXAM LIMITED 02/04/2025 9:31 AM CDT Anesthesia Event [facility] [address] [place] [phone] Ajit Vides MD Bowers, Bart Steven, CRNA 02/04/2025 8:37 AM CDT - 02/04/2025 10:40 AM CDT Hospital Encounter [facility] [address] [place] [address] [phone] Channing Nagel MD 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) Discharge Disposition: Discharge to home or self care 01/14/2025 8:30 AM CDT Office Visit [facility] [address] [place] [phone] Manjeet Orantes MD Essential hypertension (Primary Dx); [...] Former smoker Hyperparathyroidism Cataract had cataracts remove 2023 in both eyes Anemia Microcytic Anemia [...] Patrick Arth Heart attack Maternal Grandfather Erlin Burkettleyda Alzheimer's disease Mother Aisha Arth Arthritis Mother [...] Years Used Date Smoking Tobacco: Some Days Cigarettes 1 58.8 Started: 04/23/1966 Cigars Passive Smoke Exposure: Yes Smokeless Tobacco: Never Tobacco Cessation:Ready to Q uit: Not Asked; Counseling Given: Not Answered Comments:No longer smoke cigarettes/ quit in 1997. 2019 started small cigars, 3/week Alcohol Use Standard Drinks/Week Comments Yes 6 (1 standard drink = 0.6 oz pur e alcohol) 4 drinks per week PHQ-2 Answer Date Recorded PHQ-2 Score 0 06/28/2018 AUDIT-C Answer Date Recorded Q1: How often do you have a drink containing alc ohol? 2-3 times a week 02/04/2025 Q2: How many drinks containi ng alcohol do you have on a typical day when you are drinking? 3 or 4 02/04/2025 Q3: How often do you have si x or more drinks on one occasion? Never 02/04/2025 Personal Safety Answer Date Recorded Have you ever been in or are you currently in a harmful physical or emotional relationship or is someone making you feel afraid or unsafe? 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 Gender Identity Not on file Sexual Orientation Straight 07/25/2018 10 :48 AM CDT Obstetrics History Last Filed Vital Signs Vital Sign Reading Time Taken Comments Blood Pressure 125/85 02/04/2025 10:30 AM CDT Pulse 63 02/04/2025 10:30 AM CDT Temperature 36.1 C (97 F) 02/04/2025 9:12 AM CDT Respiratory Rate 15 02/04/2025 10:30 AM CDT Oxygen Saturation 94% 02/04/2025 10:30 AM CDT Inhaled Oxygen Concentration - - Weight 92.1 kg (203 lb) 02/04/2025 9:12 AM CDT Height 172.7 cm (5' 8) 02/04/2025 9:12 AM CDT Body Mass Index 30.87 02/04/2025 9:12 AM CDT Plan of Treatment Health Maintenance Due Date Last Done Comments Colon Cancer Screening-Colonoscopy 1950 Depression Screening 1950 Hepatitis B Screening 1969 Lung Cancer Screening 2001 Zoster Vaccine (1 of 2) 2001 Abdominal Aortic Aneurysm (A AA) Screen 2016 Well Visit 65+ 2016 Covid-19 Vaccine ( season) 2024 02/14/2021, 07/03/2020, 06/05/2020 Influenza Vaccine (#1) 2024 , 01/06/2020, 01/21/2019 Fall Risk Assessment 02/04/2026 02/04/2025 DTaP/Tdap/Td Vaccine (2 - Td or Tdap) 11/12/2029 Hepatitis C Screening Completed 06/14/2011 Pneumococcal vaccine 65+ Completed 018, 01/24/2018, 01/15/2017 Medical Devices Implanted Type Area General Utility Machine Operator Device Identifier Shelf Expiration Date Model / Serial / Lot Exist Software [employer] Inc. Surgical Inc [id number] - [id number] - [id number] Implanted:Qty: 1 on 02/11/2019 by Earl Shabazz MD at [facility] Exist Software [employer] Inc. Surgical Inc 01/17/2024 [id number] / [id number] / Medtronic Sofamor Danek [id number] Cd Horizon Break Off Spinal Screw Set Titanium Nonsterile 5.5 Mm - [id number] Implanted:Qty: 10 on 02/11/2019 by Earl Shabazz MD at [facility] Medtronic Inc [id number] / / Medtronic Sofamor Danek [id number] 5.5mm 120mm Curve Abdulkadir Spinal Titanium Nonsterile - [id number] Implanted:Qty: 1 on 02/11/2019 by Earl Shabazz MD at [facility] Medtronic Inc [id number] / / Medtronic Sofamor Danek [id number] Cd Horizon 5.5mm 500mm Line Straight Abdulkadir Spinal Titanium - [id number] Implanted:Qty: 1 on 02/11/2019 by Earl Shabazz MD at [facility] Medtronic Inc [id number] / / Medtronic Inc [id number] Cd Horizon 5/6-6mm Top Spinal Lateral 70mm Connector Abdulkadir - [id number] Implanted:Qty: 1 on 02/11/2019 [facility] [id number] / / Medtronic Sofamor Danek [id number] Infuse 18mm 26mm Absorbable Sponge Sterile Water Syringe Needle - [id number] Implanted:Qty: 1 on 02/11/2019 by Earl Shabazz MD at [facility] Medtronic Inc 11/21/2019 [id number] / / [id number] Medtronic Sofamor Danek [id number] Mastergraft Matrix Block Extension Void Filler Substitute 10ml - [id number] Implanted:Qty: 1 on 02/11/2019 by Earl Shabazz MD at [facility] Medtronic Inc [id number] 08/20/2021 [id number] / / [id number] Medtronic Inc [id number] Artic-L L25 Mm X W12 Mm X H9 Mm 5 D Spacer Spinal Titanium - [id number] Implanted:Qty: 1 on 02/11/2019 by Earl Shabazz MD at [facility] Medtronic Inc 01/05/2025 [id number] / / Medtronic Sofamor Danek [id number] Solera Cd Horizon 7.5mm 50mm Multiaxial Spine Screw Bone Cocr - [id number] Implanted:Qty: 5 on 02/11/2019 by Earl Shabazz MD at [facility] Medtronic Inc [id number] / / Medtronic Sofamor Danek [id number] Solera Cd Horizon 7.5mm 55mm Multiaxial Spine Screw Bone Cocr - [id number] Implanted:Qty: 1 on 02/11/2019 by Earl Shabazz MD at [facility] Medtronic Inc [id number] / / Medtronic Sofamor Danek [id number] Solera Cd Horizon 7.5mm 60mm Multiaxial Spine Screw Bone Cocr - [id number] Implanted:Qty: 1 on 02/11/2019 by Earl Shabazz MD at [facility] Medtronic Inc [id number] / / Medtronic Sofamor Danek [id number] 7.5mm 65mm Multiaxial Spine Screw Bone Cocr 5.5mm Abdulkadir - [id number] Implanted:Qty: 1 on 02/11/2019 by Earl Shabazz MD at [facility] Medtronic Inc [id number] / / Medtronic Inc [id number] 8.5mm 80mm Multiaxial Cannulated Thoracolumbar Screw Bone - [id number] Implanted:Qty: 1 on 02/11/2019 by Earl Shabazz MD at [facility] Medtronic Inc [id number] / / EyeSpota Na[employer] SolutionsciMamapedia Lisa [id number] Duragen Plus 2x2in Patch Resorbable Suturable Cranial Dura Graft - [id number] Implanted:Qty: 1 on 02/13/2019 by Earl Shabazz MD at [facility] [employer] Hipui Lisa 12/21/2021 [id number] / / Medtronic Sofamor Danek [id number] Mastergraft Matrix Block Extension Void Filler Substitute 10ml - [id number] Implanted:Qty: 1 on 04/08/2019 by Earl Shabazz MD at [facility] N/A: Spine Lumbar Medtronic Inc 12/21/2021 [id number] / / [id number] Medtronic Sofamor Danek [id number] Infuse 18mm 26mm Absorbable Sponge Sterile Water Syringe Needle - [id number] Implanted:Qty: 1 on 04/08/2019 by Earl Shabazz MD at [facility] N/A: Spine Lumbar Medtronic Inc 08/21/2020 [id number] / / [id number] Acuity Surgical Inc [id number] - [id number] - [id number] Implanted:Qty: 1 on 04/08/2019 by Earl Shabazz MD at [facility] N/A: Spine Lumbar Acuity Surgical Inc 03/13/2024 [id number] / [id number] / Medtronic Sofamor Danek [id number] Solera Cd Horizon 5.5mm 45mm Multiaxial Spine Screw Bone Cocr - [id number] Implanted:Qty: 1 on 04/08/2019 by Earl Shabazz MD at [facility] Medtronic Inc [id number] / / Medtronic Sofamor Danek [id number] Solera Cd Horizon 5.5mm 40mm Multiaxial Spine Screw Bone Cocr - [id number] Implanted:Qty: 4 on 04/08/2019 by Earl Shabazz MD at [facility] Medtronic Inc [id number] / / Medtronic Inc [id number] 8.5mm 90mm Multiaxial Cannulated Thoracolumbar Screw Bone - [id number] Implanted:Qty: 1 on 04/08/2019 by Earl Shabazz MD at [facility] Medtronic Inc [id number] / / Medtronic Inc [id number] Longitude Ii 5.5mm 500mm Straight Abdulkadir Spinal Cocr Molybdenum - [id number] Implanted:Qty: 2 on 04/08/2019 by Earl Shabazz MD at [facility] Medtronic Inc [id number] / / Medtronic Sofamor Danek [id number] Cd Horizon Break Off Spinal Screw Set Titanium Nonsterile 5.5 Mm - [id number] Implanted:Qty: 13 on 04/08/2019 by Earl Shabazz MD at [facility] Medtronic Inc [id number] / / Teleflex Medical Inc Weck Horizon Ligate Triangulate Cross Section Wire Small Wide Latex Free [id number] - [id number] Implanted:Qty: 1 on 05/30/2022 by Nicolasa Wren MD at [facility] N/A: Neck Teleflex Medical Inc 11/13/2026 [id number] / / [id number] Teleflex Medical Inc Weck Horizon 6 Cartridge Ligate Triangulate Cross Section Heart [id number] - [id number] Implanted:Qty: 1 on 05/30/2022 by Nicolasa Wren MD at [facility] N/A: Neck [employer]flex Medical Inc [id number] 02/07/2027 [id number] / / [id number] Procedures Procedure Name Priority Date/Time Associated Diagnosis Comments US ENDOSCOPIC IP Routine 02/04/2025 9:55 AM CDT 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) ESOPHAGOGASTRODUODENOSCOPY ULTRASOUND EXAM LIMITED 02/04/2025 9:31 AM CDT 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) UPPER EUS 02/04/2025 9:27 AM CDT POCT LIPID PANEL Routine 01/14/2025 8:07 AM CDT Hypertriglyceri demia from Last 3 Months Results * Upper EUS (02/04/2025 9:27 AM CDT) Anatomical Region Laterality Modality Other Narrative Procedure Note Channing Nagel MD - 02/04/2025 9:27 AM CDT ENDOSCOPY LAB Patient Name: Valdemar Clark Procedure Date: 02/04/2025 9:27 AM Admit Type: Outpatient Room: [facility] 9 Date of : 1950 Instrument Name: [id number] Gender: Male Note Status: Finalized Procedure: Upper EUS Indications: Duodenal carcinoid surveillance, resected in 2020 without recurrence after that Providers: Channing Nagel M.D. Referring MD: Homero Stephenson M.D. Medicines: Monitored Anesthesia Care Complications: No immediate complications. Estimated blood loss: Minimal. Estimated Blood Loss: Estimated blood loss was minimal. Procedure: The risks, benefits and alternatives were discussed and informed consent was obtained.The Endosonoscope was introduced through the mouth, and advanced tothe second part of duodenum The upper EUS wasaccomplished without difficulty. The patient tolerated the procedure well. Findings: ENDOSONOGRAPHIC FINDING: : The region of the celiac plexus and celiac ganglia was visualized and showed no sign of significant endosonographic abnormality. Thevascular anatomy of the region was normal. There was abnormal echogenicity in the left lobe of the liver and inthe right lobe of the liver. This area was hyperechoic. Tissue has notbeen obtained. However, the endosonographic appearance is of fatty infiltration. There was dilation in the common bile duct which measured up to 7mm. There was no sign of significant endosonographic abnormality in the gallbladder. An unremarkable gallbladder was identified. There was no sign of significant endosonographic abnormality in the examined duodenum. No pathologic lymphadenopathy, no masses and nowall thickening were identified. Impression: - Duodenal was normal by endoscopic and sonographic exams. There was no evidence of recurrentcarcinoid. - No specimens collected. Recommendation: - Further surveillance of the duodenal carcinoidwas not recommended. - The findings and recommendations were discussedwith the patient and their family. Attending Participation: I personally performed the entire procedure. Electronically signed by Channing Nagel MD Channing Nagel M.D. 02/04/2025 10:00:10 AM This document was signed electronically. Number of Addenda: 0 Note Initiated On: 02/04/2025 9:27 AM Scope In: Scope Out: us Channing Nagel MD ENDOSCOPY PROCEDURES Final Re sult * (ABNORMAL) POCT lipid panel (01/14/2025 8:07 [...] nal Result from Last 3 Months Insurance [facility] [place] [address] MEDICARE [facility] MEDICARE [facility] MEDICARE Advance Directives For more information, please contact: [phone] * Full Code (Latest Code Status on File) Date Activated Date Inactivated Comments 02/04/2025 9:04 AM 02/04/2025 2:49 PM * Full Code Date Activated Date Inactivated Comments 07/03/2022 9:07 AM 07/03/2022 2:51 PM * Full Code Date Activated Date Inactivated Comments 06/08/2021 8:08 AM 06/08/2021 3:06 PM * Full Code Date Activated Date Inactivated Comments 06/14/2020 10:38 AM 06/14/2020 3:58 PM * Full Code Date Activated Date Inactivated Comments 06/14/2020 10:17 AM 06/14/2020 10:38 AM Care Teams Jig Hand Relationship Specialty Start Date End Date Homero Stephenson MD PCP - General 07/03/16 Manjeet Orantes MD [address] [facility] [address] [place] [address] Mechanical Maintenance Technician Cardiology 01/06/19 Melia Whyte DPT [address] [place] [address] Physical Therapist Physical Therapy 03/27/24
== END 2025-02-13 10:23 | disposition home or self-care (01) ==
LOC: ANHCARD 10:27
PROVIDERS: PCP Family Medicine Adolescent Medicine; Visit Provider Anesthesiology
DX: Z01.818 Encounter for other preprocedural examination (principal); R94.31 Abnormal electrocardiogram [ECG] [EKG]; E78.2 Mixed hyperlipidemia; I10 Essential (primary) hypertension
CPT/HCPCS: 93005

== ENCOUNTER 2025-02-24 06:55 | Day surgery (SDC) | payer MEDICARE, OTHER, SELFPAY ==
[2025-02-11 12:32] VITALS: BMI 31.7
--- NOTE | 2025-02-23 16:32 | PM.IMHP ---
H&P: HPI History of Present Illness Date/Time: 02/23/25 16:32 Chief Complaint: Septal deviation turbinate hypertrophy nasal obstruction nasal congestion recurrent sinusitis chronic sinusitis Narrative: Planned surgical procedure Review of Systems Review of Systems: All systems reviewed & are unremarkable except as noted in HPI and below PMFSH Past Medical History Medical History Normal colonoscopy 05/13 Gastric ulcer 08/11 Diverticulosis GERD (gastroesophageal reflux disease) Hyperlipidemia Hypertension TIA (transient ischemic attack) Surgical History Surgical History History of cervical spinal surgery 2002 C3-5 fusion History of total left knee replacement 2016 History of lumbar surgery 2011, 2016, Lumbar fusion 2018 Family History Family History Father Acute myocardial infarction Cerebrovascular accident Colon polyp Heart disease Hypertension Grandparent Acute myocardial infarction Hypertension Mother Breast cancer Diabetes mellitus Heart disease Hypertension Son Diabetes mellitus Sibling Diabetes mellitus Grandparent Cancer Hypertension Social History Social History Smoking packs per day: 2 Smoking cigarettes per day: 40.0 Years smoked: 20 Smoking pack-years: 40.00 Smoking status: Former smoker Tobacco type: cigars Second hand tobacco smoke exposure: Yes Smoking end date: 04/23/98 Alcohol intake: current Drinks per week: 3 Alcohol use details: PANCHITO Substance use: never Substance use type: does not use Lack of Transportation: No Lack of Food: Never True Current Housing: I Have Housing Concerned About Future Housing: No Difficulty Paying Gas/Electric Bills: No Difficulty Paying for Meds: No Currently Unemployed: No Education: High School Diploma/GED Difficulty w/ Childcare or Family Care: No Living arrangements: with family Occupation/Education: retired Gender identity (if verbalized by the patient): Male Sexual Orientation (if Verbalized by the Patient): Straight or Heterosexual Spiritual care concerns: No Agree to blood products: Yes Meds Home Medications and Allergies Home Medications ?Medication ?Instructions ?Recorded ?Confirmed ?Type ewrsdgomtwce-xeqopbuw-fucepu 1 tablet PO DAILY 05/06/20 02/11/25 History tablet (Multivitamin 50 Plus tablet) mv-min-vit C-ascorbate 1 tablet PO DAILY 05/06/20 02/11/25 History pqx-lnq-xrq-herb 333 mg-1.7 mg chewable tablet (Airborne (ascorbate sodium)) rosuvastatin 40 mg tablet 40 mg PO DAILY 07/08/21 02/11/25 History acetaminophen 650 mg 650 mg PO Q12H 09/27/22 02/11/25 History tablet,extended release (Tylenol Arthritis Pain) aspirin 81 mg tablet,delayed 81 mg PO DAILY 09/27/22 02/11/25 History release mupirocin 2 % topical ointment 1 applic topical BID #22 grams 06/01/24 02/11/25 Rx indapamide 2.5 mg tablet 2.5 mg PO DAILY #90 tabs 07/19/24 02/11/25 Rx cholecalciferol (vitamin D3) 125 125 mcg PO .qod 09/17/24 02/11/25 History mcg (5,000 unit) tablet cyanocobalamin (vitamin B-12) 1,000 mcg PO .qod 09/17/24 02/11/25 History 1,000 mcg capsule diclofenac sodium 1 % topical gel 2 g topical QID PRN pain 09/17/24 02/11/25 History (Voltaren Arthritis Pain) fluticasone propionate 50 1 spray intranasal DAILY PRN 09/17/24 02/11/25 History mcg/actuation nasal allergy symptoms spray,suspension (Flonase Allergy Relief) oxycodone-acetaminophen 5 mg-325 1 tablet PO QID PRN pain #30 tabs 09/17/24 02/11/25 Rx mg tablet sildenafil 100 mg tablet (Viagra) 100 mg PO DAILY PRN sexual 09/17/24 02/11/25 Rx activity #10 tabs allopurinol 100 mg tablet See Rx Instructions .Route 09/30/24 02/11/25 Rx .COMPLEX #90 tabs lisinopril 40 mg tablet See Rx Instructions .Route 11/25/24 02/11/25 Rx .COMPLEX #90 tabs pantoprazole 40 mg tablet,delayed See Rx Instructions .Route 12/01/24 02/11/25 Rx release .COMPLEX #60 tabs gabapentin 300 mg capsule See Rx Instructions .Route 01/14/25 02/11/25 Rx .COMPLEX #180 caps Allergies Allergy/AdvReac Type Severity Reaction Status Date / Time alprazolam (From Xanax) Allergy Loss of Verified 02/11/25 13:45 Consciousness NSAIDS (Non-Steroidal AdvReac Severe gastric Verified 02/11/25 13:45 Anti-Inflamma ulcer vancomycin AdvReac Redness of Verified 02/11/25 13:45 Skin Exam Narrative: Septal deviation turbinate hypertrophy chronic appearing sinuses Assessment and Plan Assessment and plan (1) Nasal septal deviation: Code(s): J34.2 - Deviated nasal septum Status: Acute Assessment and Plan: OR for endoscopic assisted septoplasty, bilateral inferior turbinate reduction with outfracture, bilateral image guided endoscopic maxillary antrostomies, left-sided anterior ethmoidectomy left-sided frontal sinusotomy anesthesia general. Total operative time 2 hours. Risks were discussed including bleeding infection damage to surrounding structures failure to resolve symptoms need for the procedure. Worsening symptoms. Numbness of the anterior dentition. Septal perforation. Postoperative infection bleeding . CSF leak brain brain damage. Change in vision total blindness. Need for further procedures. Damage to any structure of the clavicles by myself. Damage to any structure during induction and maintenance of anesthesia. Patient voiced understanding of these risks and agreed. (2) Hypertrophy of both inferior nasal turbinates: Code(s): J34.3 - Hypertrophy of nasal turbinates Status: Acute (3) Chronic sinusitis: Code(s): J32.9 - Chronic sinusitis, unspecified Status: Acute
[2025-02-24] VITALS (8 sets, daily range): BP systolic 125–141; BP diastolic 73–85; PULSE 72–81; RESP 16–18; TEMP 36.1–36.6; O2SAT 94–100
[2025-02-24] MEDS: ACETAMINOPHEN 500 MG TABLET 1000 MG PO (07:13)
[2025-02-24] MEDS: LACTATED RINGERS 1,000 ML 30 ML IV CONT (07:18)
--- NOTE | 2025-02-24 07:35 | WPDHPUPDATE1 ---
History and Physical Update Update Date/Time: 02/24/25 07:35 History and Physical has been reviewed, including an updated exam of the patient. There are NO changes in the patient's condition. Risks, benefits, and alternatives have been discussed and questions answered. Patient agrees to proceed with procedure.
--- NOTE | 2025-02-24 07:37 | WPDANESEPPF ---
Anes - Initial Pre Proc Eval Procedure: Operation Date: 02/24/25 08:30 Proposed Procedures p Image Guided Endoscopic Septoplasty, Bilateral Inferior Turbinate Reduction with Outfracture, Bilateral Endoscopic Maxillary Antrostomies, Left Anterior Ethmoidectomy and Frontal Sinusotomy - Duncan Rojas MD Date/Time: 02/24/25 07:37 Surgeon: Duncan Rojas MD Pre Op Diagnosis: Vasomotor Rhinitis, Hypertrophy of Nasal Turbinate Patient Data Age: 74 Gender: M Height: 1.7 m Weight: 92 kg Last Vital Signs Temp 98 F 02/24/25 07:09 Pulse 73 02/24/25 07:09 Resp 16 02/24/25 07:09 BP 125/83 02/24/25 07:09 Pulse Ox 98 02/24/25 07:09 O2 Del Method Room Air 02/24/25 07:09 Allergies Allergy/AdvReac Type Severity Reaction Status Date / Time alprazolam (From Xanax) Allergy Loss of Verified 02/24/25 07:07 Consciousness NSAIDS (Non-Steroidal AdvReac Severe gastric Verified 02/24/25 07:07 Anti-Inflamma ulcer vancomycin AdvReac Redness of Verified 02/24/25 07:07 Skin Home Medications ?Medication ?Instructions ?Recorded ?Confirmed ?Type yyhdgeebzprw-dlamhklu-bjxkcw 1 tablet PO DAILY 05/06/20 02/24/25 History tablet (Multivitamin 50 Plus tablet) mv-min-vit C-ascorbate 1 tablet PO DAILY 05/06/20 02/24/25 History skb-lyf-vdp-herb 333 mg-1.7 mg chewable tablet (Airborne (ascorbate sodium)) rosuvastatin 40 mg tablet 40 mg PO DAILY 07/08/21 02/24/25 History acetaminophen 650 mg 650 mg PO Q12H 09/27/22 02/24/25 History tablet,extended release (Tylenol Arthritis Pain) aspirin 81 mg tablet,delayed 81 mg PO DAILY 09/27/22 02/24/25 History release mupirocin 2 % topical ointment 1 applic topical BID #22 grams 06/01/24 02/24/25 Rx indapamide 2.5 mg tablet 2.5 mg PO DAILY #90 tabs 07/19/24 02/24/25 Rx cholecalciferol (vitamin D3) 125 125 mcg PO .qod 09/17/24 02/24/25 History mcg (5,000 unit) tablet cyanocobalamin (vitamin B-12) 1,000 mcg PO .qod 09/17/24 02/24/25 History 1,000 mcg capsule diclofenac sodium 1 % topical gel 2 g topical QID PRN pain 09/17/24 02/24/25 History (Voltaren Arthritis Pain) fluticasone propionate 50 1 spray intranasal DAILY PRN 09/17/24 02/24/25 History mcg/actuation nasal allergy symptoms spray,suspension (Flonase Allergy Relief) oxycodone-acetaminophen 5 mg-325 1 tablet PO QID PRN pain #30 tabs 09/17/24 02/24/25 Rx mg tablet sildenafil 100 mg tablet (Viagra) 100 mg PO DAILY PRN sexual 09/17/24 02/24/25 Rx activity #10 tabs allopurinol 100 mg tablet See Rx Instructions .Route 09/30/24 02/24/25 Rx .COMPLEX #90 tabs lisinopril 40 mg tablet See Rx Instructions .Route 11/25/24 02/24/25 Rx .COMPLEX #90 tabs pantoprazole 40 mg tablet,delayed See Rx Instructions .Route 12/01/24 02/24/25 Rx release .COMPLEX #60 tabs gabapentin 300 mg capsule See Rx Instructions .Route 01/14/25 02/24/25 Rx .COMPLEX #180 caps Patient hx anesthesia problems: none Family hx anesthesia problems: none Results Review: All pre-operative results and documents have been reviewed as part of the pre-operative evaluation. [facility] Past Medical History Medical History Normal colonoscopy 05/13 Gastric ulcer 08/11 Diverticulosis GERD (gastroesophageal reflux disease) Hyperlipidemia Hypertension TIA (transient ischemic attack) Surgical History Surgical History History of cervical spinal surgery 2002 C3-5 fusion History of total left knee replacement 2017 History of lumbar surgery 2011, 2016, Lumbar fusion 2018 Family History Family History Father Acute myocardial infarction Cerebrovascular accident Colon polyp Heart disease Hypertension Grandparent Acute myocardial infarction Hypertension Mother Breast cancer Diabetes mellitus Heart disease Hypertension Son Diabetes mellitus Sibling Diabetes mellitus Grandparent Cancer Hypertension Social History Social History Smoking packs per day: 2 Smoking cigarettes per day: 40.0 Years smoked: 20 Smoking pack-years: 40.00 Smoking status: Former smoker Tobacco type: cigars Second hand tobacco smoke exposure: Yes Smoking end date: 04/23/98 Alcohol intake: current Drinks per week: 3 Alcohol use details: RAHATJANET Substance use: never Substance use type: does not use Lack of Transportation: No Lack of Food: Never True Current Housing: I Have Housing Concerned About Future Housing: No Difficulty Paying Gas/Electric Bills: No Difficulty Paying for Meds: No Currently Unemployed: No Education: High School Diploma/GED Difficulty w/ Childcare or Family Care: No Living arrangements: with family Occupation/Education: retired Gender identity (if verbalized by the patient): Male Sexual Orientation (if Verbalized by the Patient): Straight or Heterosexual Spiritual care concerns: No Agree to blood products: Yes Anes - Eval Final PreProcedure Day of Procedure 02/24/25 07:37 Heart: regular rate and rhythm Lungs: clear to auscultation Airway: Mallampati scale (limited neck mobility) class IV Neurological: alert and oriented Last oral intake: >/= 8 hours ASA classification: III Anesthetic plan: proceed Anesthesia type and monitoring: general Results Review: All pre-operative results and documents have been reviewed as part of the pre-operative evaluation. Informed Consent: The patient's anesthetic plan and its attendant risks and benefits were discussed with the patient/family/POA. Questions were solicited and answers provided to the satisfaction of the patient/family/POA.
[2025-02-24] MEDS: ceFAZolin 2 GM in SODIUM CHLORIDE 0.9% IV 50 ML 100 ML IVPB (09:03)
[2025-02-24] MEDS: OXYMETAZOLINE HCL 0.05% NAS 15 ML BTL (*BKC) 1 SPRAY (09:38)
[2025-02-24] MEDS: LIDO 1%/EPINEPHRINE 1:100,000 20 ML VIAL (09:39)
[2025-02-24] MEDS: MUPIROCIN 2% OINT 22 GM TUBE 1 APPLIC TOPICAL (10:50)
--- NOTE | 2025-02-24 11:20 | W.PM.PROC2 ---
Procedure Note - Detailed Date of Procedure 02/24/25 Pre-op Diagnosis Vasomotor Rhinitis, Hypertrophy of Nasal Turbinate, nasal obstruction, septal deviation, chronic sinusitis Post-op Diagnosis Same Procedure Performed 1. Image guided left-sided endoscopic maxillary antrostomy 2. Image guided left-sided endoscopic anterior ethmoidectomy 3. Image guided left-sided endoscopic frontal sinusotomy 4. Right-sided image guided endoscopic maxillary antrostomy 5. Endoscopic assisted septoplasty 6. Bilateral inferior turbinate reduction with outfracture Surgeon Duncan Rojas MD Anesthesia General Indications See above Findings Severely leftward deviated septum, hypertrophied turbinates, diseased mucosa of the aforementioned sinuses Description of Procedure Patient identified consent verified the preoperative holding area. Patient brought to the operating room. Time-out performed. General anesthesia induced endotracheal tube secured airway. Patient prepped draped position procedure confirmed 2nd time-out performed. Image guidance she confirmed. Total 12 cc 1% lidocaine with 1 100,000 parts epinephrine injected bilateral nasal septum and inferior turbinates. [place] incision made left side with 15 blade left nasal septal flap elevated linear tear on the left no tear on the right. Osteotome utilized to cross through the septum. Right nasal septal flap elevated with 7 Swedish suction left nasal septal flap was also elevated with 7 Swedish suction caudal elevator. Deviated septum moved Jose forceps Geoff Oswald forceps and osteotome. No tears on the right side. The septal flaps washed out. Closed anteriorly with 3 interrupted 5 0 fast gut sutures. Turbinates stand anteriorly with 15 blade reduced in the submucosal plane with the 2smstronic 2 mm microdebrider. No tears. Outfractured with Moira elevator. Good reduction. Maxillary antrostomies performed bilaterally, with double ball tip probe image guidance sickle blade microdebrider with image guidance straight through cutter and backbiter. No damage to orbit her septum. Care was taken to ensure with 30 degree scope that the surgical os connected to the natural os bilaterally. Left-sided anterior ethmoidectomy performed with image guidance microdebrider which was also image guided Rexrison. Frontal sinusotomy performed with frontal sinus instruments including Hosemann and draft instruments as well as image guided suction. And upbiting through cut. Great care was taken to not damage the mucosa into the frontal sinus. Good cannulation. Nova pack was placed on the left side. Bilateral nasal passages washed out. Goss splints were placed and ensured to be lateral to the middle turbinates. Sutured anteriorly using a 3-0 mattress nylon suture. Total blood loss 25 cc. I performed all dictated portions of the procedure there were no complications. Care the patient back to Anesthesiology. Patient taken to PACU. Estimated Blood Loss 25 Drains No Packing Yes (Nova pack) Pathology None sent Complications No immediate complications Condition Stable Disposition PACU [facility] Billing Surgery - Charge Forward: Surgery Billing
--- NOTE | 2025-02-24 11:29 | SUR.PHASEI ---
PT AWAKE AND ALERT. DENIES PAIN. DOING GOOD. DRIP PAD DRY. DR LILLY AT BEDSIDE CHECKING ON PT.
[2025-02-24] MEDS: oxyCODONE HCL (*CRX) 5 MG TAB IR PO (12:06)
== END 2025-02-24 12:33 | disposition home or self-care (01) ==
PROVIDERS: PCP Family Medicine Adolescent Medicine; Visit Provider Otolaryngology
PROC: (CPT 31256; principal; 2025-02-24 08:30)
DX: J30.0 Vasomotor rhinitis (principal); J34.3 Hypertrophy of nasal turbinates; J34.2 Deviated nasal septum; J32.9 Chronic sinusitis, unspecified
CPT/HCPCS: 31256; 31254; 31276; 30140; 30520; 61782